=== PATIENT | male | born 1950 | race Hispanic/Latino ===

== ENCOUNTER 2017-03-21 15:06 | Outpatient (CLI) | payer BC ==
--- NOTE | 2017-03-21 18:19 | MRI ---
BRAIN MRI WITH AND WITHOUT CONTRAST MRI IAC WITH AND WITHOUT CONTRAST: Date: 03/21/17 CLINICAL HISTORY: Sudden idiopathic hearing loss, left ear. No prior MR imaging available for comparison. FINDINGS: Ventricular system is age-appropriate in size. There is no midline shift or mass effect intracranial ly, Mild chronic microvascular ischemic disease is present. There is no pathologic enhancement or ma ss effect of either CP angle cistern. IMPRESSION: 1. No acute intracranial abnormalities. 2. Mild chronic microvascular ischemic disease. 3. No pathologic enhancement or mass effect of either CP angle cistern. POS: [facility]
== END 2017-03-21 15:07 | disposition home or self-care (01) ==
LOC: MRI 15:06
PROVIDERS: ATTEND Otolaryngology Otolaryngic Allergy
DX: H91.22 Sudden idiopathic hearing loss, left ear (principal); H90.A21 Sensorineural hearing loss, unilateral, right ear, with restricted hearing on the contralateral side; H72.91 Unspecified perforation of tympanic membrane, right ear; H93.12 Tinnitus, left ear; I67.82 Cerebral ischemia
CPT/HCPCS: 70553

== ENCOUNTER 2017-07-13 07:07 | Emergency (ER) | payer BC ==
[2017-07-13 07:33] LABS: #Eosinphils 0.3 thou/uL (0.0-0.7); #Lymphocytes 2.2 thou/uL (1.20-3.40); #Monocytes 0.8 thou/uL (0.11-0.59); #Neutrophils 6.7 thou/uL (1.40-6.50); %Basophils 0.5 % (0.0-1.0); %Eosinophils 2.7 % (0.0-10.0); %Lymphocytes 21.5 % (21.0-51.0); %Monocytes 8.3 % (0.0-10.0); Hemoglobin 16.7 g/dL (14.0-18.0); Mean Corpuscular HGB CONC 33.8 g/dL (32.0-36.0); Mean Corpuscular Hemoglobin 30.3 pg (27.0-31.0); Mean Corpuscular Volume 89.9 fl (80.0-94.0); Mean Platelet Volume 6.4 fL (7.4-10.4); Platelet Count 226 thou/uL (130-400); RBC Distribution Width 12.3 % (11.5-14.5); Red Blood Cell (RBC) Count 5.49 mill/uL (4.70-6.10)
[2017-07-13 07:45] LABS: ALT (SGPT) 15 U/L (8-55); AST (SGOT) 16 U/L (5-34); Albumin 3.9 g/dL (3.4-4.8); Alkaline Phosphatase 53 U/L (40-150); Anion Gap 13 mmol/L (10-20); BUN (Urea Nitrogen) 13 mg/dL (8.4-25.7); Bilirubin, Total 0.7 mg/dL (0.2-1.2); Calc. Creatinine Clearance 0 mL/min (70-130); Calcium 9.2 mg/dL (7.8-10.44); Carbon Dioxide 24 mmol/L (23-31); Chloride 103 mmol/L (98-107); Estimated GFR-MDRD 70; Globulin 3.4 g/dL (2.4-3.5); Glucose 139 mg/dL (80-115); Potassium 4.2 mmol/L (3.5-5.1); Protein, Total 7.3 g/dL (5.8-8.1); Sodium 136 mmol/L (136-145)
[2017-07-13 08:30] LABS: Bilirubin Negative (Negative); Blood, Urine Large (Negative); Clarity CLOUDY (Clear); Glucose, Urine (Dipstick) Negative (Negative); Leukocyte Small (Negative); Nitrite Negative (Negative); Protein, Urine (Dipstick) 30 mg/dL (Neg-Trace); Specific Gravity, Urine 1.013 (1.002-1.036); Urobilinogen 0.2 mg/dL (0.2-1.0); pH, Urine 5.5 (5.0-9.0)
[2017-07-13 08:33] LABS: Bacteria/HPF None Seen HPF (None Seen); Hyaline Casts/LPF 0-3 HYALINE CAST LPF (0-3 Hyaline); RBC/HPF GREATER THAN 50-TNTC HPF (0-3); Squamous Epithelial None Seen HPF (0-3)
== END 2017-07-13 09:36 | disposition home or self-care (01) ==
LOC: ERS 07:07
DX: N39.0 Urinary tract infection, site not specified (principal); E78.5 Hyperlipidemia, unspecified; Z79.01 Long term (current) use of anticoagulants
CPT/HCPCS: 36415; 80053; 81003; 81015; 85025; 99283

== ENCOUNTER 2017-07-30 17:43 | Outpatient (CLI) | payer BC, MEDICARE ==
[2017-07-30 18:16] LABS: Hemoglobin 15.4 g/dL (14.0-18.0); Mean Corpuscular HGB CONC 34.1 g/dL (32.0-36.0); Mean Corpuscular Hemoglobin 30.2 pg (27.0-31.0); Mean Corpuscular Volume 88.6 fl (80.0-94.0); Platelet Count 223 thou/uL (130-400); RBC Distribution Width 12.4 % (11.5-14.5); Red Blood Cell (RBC) Count 5.08 mill/uL (4.70-6.10); White Blood Cell (WBC) Count 9.3 thou/uL (4.8-10.8)
[2017-07-30 18:26] LABS: INR-International Normal Ratio 1.1; Prothrombin Time 13.9 SEC (12.0-14.7)
[2017-07-30 18:29] LABS: PTT 19.9 SEC (22.9-36.1)
[2017-07-30 18:35] LABS: Anion Gap 14 mmol/L (10-20); BUN (Urea Nitrogen) 17 mg/dL (8.4-25.7); Calc. Creatinine Clearance 0 mL/min (70-130); Calcium 9.4 mg/dL (7.8-10.44); Carbon Dioxide 24 mmol/L (23-31); Chloride 104 mmol/L (98-107); Estimated GFR-MDRD 59; Glucose 92 mg/dL (80-115); Potassium 3.9 mmol/L (3.5-5.1); Sodium 138 mmol/L (136-145)
[2017-07-30 18:46] LABS: Platelet Count 222 thou/uL (130-400)
== END 2017-07-30 17:44 | disposition home or self-care (01) ==
LOC: LABBT 17:43
PROVIDERS: ATTEND Urology
DX: Z01.812 Encounter for preprocedural laboratory examination (principal); N20.1 Calculus of ureter
CPT/HCPCS: 80048; 85027; 85576; 85610; 85730; 93005; 93010

== ENCOUNTER 2017-07-31 05:47 | Day surgery (SDC) | payer BC, MEDICARE ==
[2017-07-30 18:06] VITALS: BMI 38.0
[2017-07-31] MEDS ORDERED: Iothalamate Meglumine 60% 50 ML VIAL FS ONE (07:17)
[2017-07-31] MEDS ORDERED: cefTRIAXone\\ROCEPHIN 2 GM in Sodium Chloride 0.9% 100 ML IVPB SCH (07:30)
--- NOTE | 2017-07-31 08:44 | RAD ---
ABDOMEN 1 VIEW: Date: 07/31/17 HISTORY: 67-year-old male with history of preoperative evaluation. FINDINGS: There is some scattered gas and fecal material in the colon. No evidence for large or small bowel obs truction. No overt calculus. Somewhat patchy bone mineralization within the proximal femurs, nonspeci fic. No overt calculus. No large or small bowel obstruction. IMPRESSION: No significant acute process in the abdomen. POS: [facility]
[2017-07-31] MEDS ORDERED: Midazolam HCl 2 mg/2 ml Vial ONE (09:26)
[2017-07-31] MEDS ORDERED: Fentanyl 250 MCG/5 ML VIAL ONE ×2 (09:26→10:44)
--- NOTE | 2017-07-31 09:49 | OP ---
DATE OF PROCEDURE: 07/31/2017 PREOPERATIVE DIAGNOSIS: Right proximal ureteral stone. POSTOPERATIVE DIAGNOSIS: Right proximal ureteral stone. PROCEDURE: Extracorporeal shock wave lithotripsy, cysto, right stents. SURGEON: Dr. Rohith Contreras ANESTHESIA: General. ESTIMATED BLOOD LOSS: Not recorded. FINDINGS: A 1 cm proximal right ureteral stone treated with 2500 shocks at maximum kV level 6, it di d appear to fragment well. Because of the number of potential fragments to pass, we did pass a 4.8 x 26 cm double-J stent, string was left attached to it coming out the urethral meatus. OPERATIVE TECHNIQUE: After obtaining written and verbal consent from the patient, after documenting normal preoperative blood work, platelet function assay and after receiving 2 grams of Rocephin, he w as taken to the operating suite. He was placed in supine position on the treatment table. PlexiPuls es were placed on his lower extremities and turned on. He was given a general anesthetic, oral intub ation. He was coupled to the lithotripsy unit. The stone was placed in treatment focal point. Shoc kwave started at a low kV after a couple 100 shocks, a pause was given and then the kV was increased to level 6. The rate was kept at about 60, the fluoroscopy was used intermittently to document stone fragmentation and reposition as necessary. It did appear that the stone fragmented well compared to what it initially looked like. There were just what appeared to be some fragments left. He is quit e large, so it is not for certain what we are seeing and for that reason, we elected to do a cystosco py and a retrograde which we did, the stone fragments were seen still in the proximal ureter. They d id appear to be much smaller. Because of the number of fragments we did elect to place a stent. So to do this he was placed in the dorsal lithotomy position and sterilely prepped and draped. Cystosco py could not be performed with a 22-English sheath and so we had to dilate him up gently to 24 English before we can get the scope pass, it passed easily then. He had a stricture of the bulb that was eas serina passed. It was wide caliber and short, he had a large prostate. He had no tumor, foreign body, or stone in the bladder. A Pollack catheter was flushed with contrast, placed in the right ureteral orifice and contrast injected in retrograde manner showing a normal caliber ureter, some filling defe cts in the proximal ureter where the ESWL was. A wire was then fed by this and open-ended catheter was removed, and the stent was passed over the guidewire and pushed up in place with aid of a pusher so its proximal end coiled in the renal pelvis and its distal end coiled in the bladder when the wire was removed. The string was left exiting the urethral meatus. The bladder was drained. Instrument s were removed. The patient was awakened, extubated, and taken by stretcher to the recovery room.
[2017-07-31] MEDS ORDERED: Lidocaine 1% PF 5 ML VIAL ONE (14:19)
[2017-07-31] MEDS ORDERED: Ondansetron HCl/PF 4 MG/2 ML Vial ONE (14:19)
[2017-07-31] MEDS ORDERED: Propofol 200 MG/20 ML VIAL ONE (14:19)
[2017-07-31] MEDS ORDERED: Succinylcholine Chloride 20 MG/ML 10 ml SYRINGE FS ONE (14:19)
[2017-07-31] MEDS ORDERED: ePHEDrine/0.9% NaCl/PF SYRINGE 50 mg/10 ml ONE (14:19)
[2017-07-31] MEDS ORDERED: PHENYLEPHRINE-NS 100 MCG/ML 10 ML SYRINGE ONE (14:19)
== END 2017-07-31 10:58 | disposition home or self-care (01) ==
LOC: SDC 05:47
PROVIDERS: ATTEND Urology
PROC: 0T768DZ Dilation of Right Ureter with Intraluminal Device, Via Natural or Artificial Opening Endoscopic (ICD-10-PCS; principal; 2017-07-31)
PROC: 0TF6XZZ Fragmentation in Right Ureter, External Approach (ICD-10-PCS; principal; 2017-07-31)
DX: N20.1 Calculus of ureter (principal); E11.9 Type 2 diabetes mellitus without complications; E78.5 Hyperlipidemia, unspecified; Z79.84 Long term (current) use of oral hypoglycemic drugs; Z79.01 Long term (current) use of anticoagulants; Z79.899 Other long term (current) drug therapy; Z87.442 Personal history of urinary calculi
CPT/HCPCS: 74018; C1758; J0696; J2001; J2250; J2405; J2704; J3010; J7050; Q9961

== ENCOUNTER 2017-12-17 13:01 | Emergency (ER) | payer BC, MEDICARE ==
[2017-12-17] MEDS ORDERED: Lidocaine 4% Cream 5 GM TUBE w/ Tegaderm ONE (13:24)
[2017-12-17] MEDS ORDERED: Bacitracin Zinc 1 Packet ONE (13:56)
== END 2017-12-17 14:24 | disposition home or self-care (01) ==
LOC: ERS 13:01
DX: S01.21XA Laceration without foreign body of nose, initial encounter (principal); V89.2XXA Person injured in unspecified motor-vehicle accident, traffic, initial encounter; Z87.442 Personal history of urinary calculi
CPT/HCPCS: 12011

== ENCOUNTER 2018-06-11 21:38 | Observation (INO) | payer BC, MEDICARE ==
[~2018-06-11 21:38] MED LIST: ISOVUE-370 76%-LOCM 1 ML ONE
[2018-06-11 23:59] LABS: #Eosinphils 0.1 thou/uL (0.0-0.7); #Lymphocytes 1.6 thou/uL (1.20-3.40); #Monocytes 0.8 thou/uL (0.11-0.59); #Neutrophils 6.8 thou/uL (1.40-6.50); %Basophils 0.2 % (0.0-1.0); %Eosinophils 1.6 % (0.0-10.0); %Lymphocytes 17.3 % (21.0-51.0); %Monocytes 8.5 % (0.0-10.0); %Neutrophils 72.4 % (42.0-75.0); Hemoglobin 14.7 g/dL (14.0-18.0); Mean Corpuscular HGB CONC 33.6 g/dL (32.0-36.0); Mean Corpuscular Hemoglobin 30.4 pg (27.0-31.0); Mean Corpuscular Volume 90.4 fL (78.0-98.0); Mean Platelet Volume 6.6 fL (7.4-10.4); Platelet Count 218 thou/uL (130-400); RBC Distribution Width 12.2 % (11.5-14.5); Red Blood Cell (RBC) Count 4.83 mill/uL (4.70-6.10); White Blood Cell (WBC) Count 9.4 thou/uL (4.8-10.8)
[2018-06-12 00:05] LABS: INR-International Normal Ratio 1.6; PTT 28.2 SEC (22.9-36.1); Prothrombin Time 18.8 SEC (12.0-14.7)
[2018-06-12 00:20] LABS: ALT (SGPT) 23 U/L (8-55); AST (SGOT) 25 U/L (5-34); Albumin 3.8 g/dL (3.4-4.8); Alkaline Phosphatase 65 U/L (40-150); Anion Gap 15 mmol/L (10-20); BUN (Urea Nitrogen) 16 mg/dL (8.4-25.7); Bilirubin, Total 0.7 mg/dL (0.2-1.2); CK (CPK) 264 U/L (30-200); Calc. Creatinine Clearance 0 mL/min (70-130); Calcium 9.6 mg/dL (7.8-10.44); Carbon Dioxide 24 mmol/L (23-31); Chloride 105 mmol/L (98-107); Estimated GFR-MDRD 59; Globulin 3.1 g/dL (2.4-3.5); Glucose 129 mg/dL (80-115); Potassium 4.1 mmol/L (3.5-5.1); Protein, Total 6.9 g/dL (5.8-8.1); Sodium 140 mmol/L (136-145)
[2018-06-12] MEDS ORDERED: Enoxaparin Sodium 100 MG/ML SYRINGE ONE (03:15)
[2018-06-12 03:48] LABS: Bilirubin Negative (Negative); Blood, Urine Negative (Negative); Clarity CLOUDY (Clear); Glucose, Urine (Dipstick) Negative (Negative); Leukocyte Negative (Negative); Nitrite Negative (Negative); Protein, Urine (Dipstick) Negative (Neg-Trace); Specific Gravity, Urine 1.028 (1.002-1.036); pH, Urine 7.5 (5.0-9.0)
[2018-06-12 04:49] VITALS: BMI 38.1
[2018-06-12] MEDS ORDERED: Ondansetron PF 4 MG/2 ML Vial IVP PRN (04:52)
[2018-06-12] MEDS ORDERED: Acetaminophen 325 MG TAB PO PRN ×2 (04:52→11:11)
[2018-06-12] MEDS ORDERED: Ondansetron ODT 4 MG TAB SL PRN (04:52)
--- NOTE | 2018-06-12 08:37 | CT ---
PRELIMINARY REPORT/[facility]/EMERGENTY AFTER-HOURS PROCEDURE CT Angiography Chest With Contrast EXAM DATE/TIME: 06/12/2018 12:41 AM CLINICAL HISTORY: 67 years old, male; Signs and symptoms; Other: Syncope; Patient HX: Er 20; 67 y/o m presents to ed S/ P syncope and collapse. PT has had a total of x 3 episodes, with 2 this week and 1 last week. Previou s episodes similar to event today. Last week, the event was preceded by a bout of profuse coughing. PT C/O of dizziness following the events. ; Additional info: HX: Dvt TECHNIQUE: Axial computed tomographic angiography images of the chest with intravenous contrast using CT angiogr aphy protocol. MIP reconstructed images were created and reviewed. COMPARISON: No relevant prior studies available. FINDINGS: Pulmonary arteries: No pulmonary emboli. Aorta: Normal. No aortic aneurysm. No aortic dissection. Lungs: Normal. No consolidation. No masses. Pleural space: Normal. No pneumothorax. No pleural effusion. Heart: Moderate three-vessel coronary artery atherosclerotic disease. Mediastinum: Small-sized hiatal hernia. Lymph nodes: Few small lymph nodes within the mediastinum, likely reactive. Bones/joints: Multilevel thoracic spine degenerative changes. Soft tissues: Unremarkable. IMPRESSION: No pulmonary emboli. No acute thoracic abnormality. Thank you for allowing us to participate in the care of your patient. Dictated and Authenticated by: Brando Adkins MD 06/12/2018 1:08 AM Central Time ([place] & [place]) FINAL REPORT EMERGENT AFTER HOURS CT ANGIO OF CHEST PERFORMED WITH INTRAVENOUS CONTRAST ENHANCEMENT WITH 3D RECONS TRUCTIONS: HISTORY: Syncopal episode. Coughing. FINDINGS: Lungs are clear of any infiltrative process. No pulmonary nodules or pleural effusions identified. No significant mediastinal or hilar adenopathy. Artifact degrades detail. There is fair pulmonary artery opacification for evaluation for proximal e mboli. Distal emboli cannot be excluded on the basis of this study. Evaluation is more difficult in the lower lobe pulmonary arteries. There is no CT evidence for pulmonary embolus. IMPRESSION: 1. Somewhat limited examination, but no CT evidence for pulmonary embolus. 2. This report is in agreement with the temporary report issued by [facility]. POS: [facility]
--- NOTE | 2018-06-12 08:39 | CT ---
PRELIMINARY REPORT/[facility]/EMERGENTY AFTER-HOURS PROCEDURE CT Head Without Contrast EXAM DATE/TIME: 06/12/2018 12:37 AM CLINICAL HISTORY: 67 years old, male; Signs and symptoms; Syncope and collapse; Patient HX: Er 20; 67 y/o m presents to ed S/P syncope and collapse. PT has had a total of x 3 episodes, with 2 this week and 1 last week. P revious episodes similar to event today. Last week, the event was preceded by a bout of profuse cough ing. PT C/O of dizziness following the events. ; Additional info: HX: Dvt TECHNIQUE: Axial computed tomography images of the head/brain without contrast. COMPARISON: No relevant prior studies available. FINDINGS: Brain: Scattered areas of hypoattenuation, likely chronic small vessel ischemic change, demyelination , or gliosis. Ventricles: Normal. Bones/joints: Normal. Sinuses: Normal as visualized. Mastoid air cells: Normal as visualized. Soft tissues: Normal. Vasculature: Atherosclerotic vascular calcifications. IMPRESSION: No acute intracranial abnormality. Thank you for allowing us to participate in the care of your patient. Dictated and Authenticated by: Brando Adkins MD 06/12/2018 1:05 AM Central Time ([place] & [place]) FINAL REPORT EMERGENCY AFTER HOURS CT BRAIN PERFORMED WITHOUT CONTRAST ENHANCEMENT: Date: 06/11/18 HISTORY: Syncope. FINDINGS: The ventricular and cisternal system shows generalized mild atrophy. There are no signs of intracereb ral hemorrhage or extra-axial fluid collections. The mastoid air cells and visualized sinuses are natalie ar. IMPRESSION: No acute intracranial abnormalities. This report is in agreement with the preliminary report issued by [facility]. POS: [facility]
--- NOTE | 2018-06-12 08:40 | ULT ---
PRELIMINARY REPORT/[facility]/EMERGENT[facility] AFTER-HOURS PROCEDURE US Right Duplex Lower Extremity Veins, Limited EXAM DATE/TIME: 06/12/2018 12:03 AM CLINICAL HISTORY: 67 years old, male; Pain; Leg, lower; Right; Patient HX: RT calf pain; Additional info: HX: Dvt TECHNIQUE: Real-time Duplex ultrasound of the Right Lower Extremity with 2-D franklin scale, color Doppler flow and spectral waveform analysis. Limited exam was focused on the right lower extremity veins. COMPARISON: No relevant prior studies available. FINDINGS: Right deep veins: Nearly nearly occlusive thrombus within the right mid posterior tibial vein, which is only partially compressible. Remainder of the visualized right lower extremity deep veins are wide ly patent, with normal color Doppler flow and response to augmentation and compression maneuvers. Right superficial veins: Unremarkable. Saphenofemoral junction is patent without thrombus. Soft tissues: Unremarkable. IMPRESSION: Near occlusive DVT within the mid posterior tibial vein. Thank you for allowing us to participate in the care of your patient. Dictated and Authenticated by: Brando Adkins MD 06/12/2018 12:31 AM Central Time ([place] & [place]) FINAL REPORT EMERGENCY AFTER HOURS RIGHT LOWER EXTREMITY VENOUS DUPLEX EXAM: Date: 06/11/18 HISTORY: Right leg pain and swelling. FINDINGS: Real-time color Doppler evaluation of the right lower extremity was performed from groin to calf. Thi s includes evaluation of the common femoral, superficial and profunda femoral, saphenous, popliteal, and posterior tibial veins. This shows some thrombus within the mid posterior tibial vein within the calf. The remainder of the deep venous system is patent with normal compressibility and augmentation. IMPRESSION: Nonocclusive deep venous thrombosis of the mid calf, specifically involving the popliteal vein in thi s region. This report is in agreement with the preliminary report issued by [facility]. POS: [facility]
[2018-06-12] MEDS ORDERED: Prevnar 13-Val Conj/PF 0.5 ML SYRINGE IM ONE (09:00)
[2018-06-12] MEDS ORDERED: Dextrose 5% in Water 1,000 ML IV PRN (11:11)
[2018-06-12] MEDS ORDERED: HumaLOG 300 UNITS/3 ML VIAL SC PRN ×2 (11:11)
[2018-06-12] MEDS ORDERED: Dextrose 50% Abboject 50 ML SYRINGE SLOW IVP PRN (11:11)
[2018-06-12] MEDS ORDERED: Senokot S 8.6-50 MG TAB PO PRN (11:11)
[2018-06-12] MEDS ORDERED: Lorazepam 2 MG/ML VIAL SLOW IVP PRN (11:11)
--- NOTE | 2018-06-12 13:49 | HP ---
REASON FOR ADMISSION: Syncope, possible seizure, likely sleep apnea. HISTORY OF PRESENTING ILLNESS: The patient apparently passed out twice while sitting on his couch, once last week and once yesterday evening. During both episodes which were witnessed by family members, the patient apparently had his eyes rolled out and his tongue was outside his mouth. No hand or leg movements witnessed. He usually has some coughing episodes before these passing out. Yesterday's episode was witnessed by his granddaughter, who is also trying to become a nurse. No complaints of chest pain, palpitation, PND, or orthopnea. No history of prior seizures. The patient has history of snoring and the family thinks he might have sleep apnea but has not had any formal studies for the same. No palpitations, PND, or orthopnea before or after the episodes. The patient does not recall what really happened during the episode. He usually wakes up surprised per family. 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 History of nephrolithiasis with lithotripsy, dyslipidemia, likely obstructive sleep apnea. CURRENT MEDICATIONS: He takes; 1. Metformin extended release 500 mg p.o. q.p.m. 2. Zocor 20 mg p.o. at bedtime. 3. Xarelto 20 mg p.o. daily. ALLERGIES: NO KNOWN DRUG ALLERGIES. PERSONAL HISTORY: Does not abuse alcohol or drugs. No history of smoking. FAMILY HISTORY: Mother in her 60s, she had end-stage renal disease and was on dialysis. Father had history of prostate cancer and in his 70s. The patient normally ambulates by himself. Code status is full. Power of assistant attorney general is his . REVIEW OF SYSTEMS: CONSTITUTIONAL: Negative for weight loss or gain, sense of well-being, ability to conduct usual activities, exercise tolerance. SKIN/BREAST: Negative for rash, itching, changes in hair growth or loss, nail changes, breast lumps, tenderness, swelling, nipple discharge. EYES: Negative for vision, double vision, tearing, blind spots, pain. ENT/MOUTH: Negative for headaches, vertigo, lightheadedness, injury. Vision, double vision, tearing, blind spots, pain, nose bleeding, colds, obstruction, discharge, dental difficulties, gingival bleeding, dentures, neck stiffness, pain, tenderness, masses in thyroid or other areas CARDIOVASCULAR: Negative for precordial pain, substernal distress, palpitations, syncope, dyspnea on exertion, orthopnea, nocturnal paroxysmal dyspnea, edema, cyanosis, hypertension, heart murmurs, varicosities, phlebitis, claudication. RESPIRATORY: Negative for pain, shortness of breath, wheezing, stridor, cough, hemoptysis, fever or night sweats GASTROINTESTINAL: Negative for poor appetite, dysphagia, indigestion, abdominal pain, heartburn, eructation, nausea, vomiting, hematemesis, jaundice, constipation, or diarrhea, abnormal stools (sheri-colored, tarry, bloody, greasy, foul smelling), flatulence, hemorrhoids, recent changes in bowel habits. GENITOURINARY: Negative for urgency, frequency, dysuria, nocturia, hematuria, polyuria, oliguria, unusual (or change in) color of urine, stones, hesitancy, change in size of stream, dribbling, acute retention or incontinence, libido, potency. MUSCULOSKELETAL: Negative for pain, swelling, redness or heat of muscles or joints, limitation of motion, muscular weakness, atrophy, cramps. NEUROLOGIC/PSYCHIATRIC: Negative for convulsions, paralyses, tremor, incoordination, parasthesias, difficulties with memory of speech, sensory or motor disturbances, or muscular coordination (ataxia, tremor), emotional problems, anxiety, depression, previous psychiatric care, unusual perceptions, hallucinations. ALLERGY/IMMUNOLOGIC: Negative for skin rash, anemia, bleeding tendency, polydipsia, polyuria, intolerance to heat or cold. PHYSICAL EXAMINATION: GENERAL: The patient is a 67-year-old male, who is currently not in any acute distress. VITAL SIGNS: Blood pressure 120/66, pulse 90 per minute, respiratory rate 18 per minute, temperature 98.9 degrees Fahrenheit, saturating 96% on room air. NECK: Supple. No elevated JVD. HEENT: Eyes; extraocular muscles intact. Pupils are reacting to light. Oral cavity, mucous membranes are moist. No exudates or congestion. CARDIOVASCULAR: S1 and S2 heard. Regular rhythm. RESPIRATORY SYSTEM: Air entry 1+ bilateral. No rales or rhonchi. ABDOMEN: Soft. Bowel sounds heard. No tenderness, rigidity, or guarding. EXTREMITIES: No peripheral edema or calf tenderness. VASCULAR SYSTEM: Peripheral pulses 1+ bilateral. No ischemic ulcerations or gangrene. CENTRAL NERVOUS SYSTEM: No gross focal deficits noted. The patient is alert and oriented well. PSYCHIATRIC: The patient's mood is euthymic. No hallucinations or delusions. LABORATORY DATA: CT angio chest done shows no evidence of PE. The right lower extremity ultrasound venous Doppler done shows nonocclusive DVT of the midcalf involving popliteal vein in the region. CT brain showed no acute intracranial abnormalities. EKG done shows normal sinus rhythm at 79 beats per minute. UA showed no evidence of infection. BUN 16, creatinine 1.2, serum bicarb 24, electrolytes were stable. Serum glucose 129. Liver enzymes within normal limits. Prolactin is 9.9. BNP is 15. Albumin 3.8. White count of 9, hemoglobin and hematocrit of 14 and 43, platelet count 218, MCV 90 with 72% neutrophils, PT and INR are 18 and 1.6, PTT 28. CLINICAL IMPRESSION AND PLAN: The patient will be under observation on telemetry for syncope, which has been recurrent. Also, family is worried he might have seizure disorder. He has had a CT brain done, which shows no evidence of any acute intracranial abnormality. The patient likely has sleep apnea with metabolic syndrome and obesity. He needs to have outpatient sleep study and likely CPAP. For now, we will continue him on Xarelto. This is his third episode of DVT. 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 The patient has no siblings. We will continue him on aspirin and Lipitor for now. Metformin will be held until all the workups are done. Echo with 2D Doppler for LV function, MRI brain without contrast to rule out any structural lesions. EEG and echo with 2D Doppler for RV function and to rule out pulmonary hypertension with likely long-standing sleep apnea. We will also obtain consultation with Dr. Vasques, who is on for Neurology. Job ID: [id number]
[2018-06-12] MEDS: Famotidine 20 MG TAB PO SCH (20:24)
[2018-06-12] MEDS: Guaifenesin DM 100-10/5 ML UDCUP PO PRN (20:29)
[2018-06-12] MEDS ORDERED: Atorvastatin Calcium 10 MG TAB PO SCH (21:00)
--- NOTE | 2018-06-12 23:40 | CON ---
DATE OF CONSULTATION: 06/12/2018 CONSULTING PHYSICIAN: Hospitalist Service. IMPRESSION: Probable syncopal episode rather than a neurologic event. PLAN: 1. An outpatient cardiology evaluation for stress test and possible event monitor. 2. Office followup if cardiology workup is negative. HISTORY OF PRESENT ILLNESS: Mr. Burnett is a 67-year-old male with a past history of diabetes, DVT, who presented after a syncopal episode. He was sitting talking on the phone when he suddenly rolled his eyes upward and was unresponsive for about 15 seconds. When he came out of it, he reports that he did not have a headache, nausea, vomiting, dizziness, chest pain, or confusion. He had an another episode similar to this in the recent past. The only 3rd episode was around a year ago according to his daughter. 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 He has had a workup since admission including orthostatic vital signs which have not showed any blood pressure variation. His CT of the brain was normal. He had an EEG which was also normal. His routine labs including CBC and comprehensive metabolic panel were both normal as well. PAST MEDICAL HISTORY: Otherwise as noted above, including lithotripsy for kidney stone. ALLERGIES: NONE. SOCIAL HISTORY: No tobacco use or illicit drug use. FAMILY HISTORY: Unremarkable. REVIEW OF SYSTEMS: A 10-system review of systems is, otherwise, negative. PHYSICAL EXAMINATION: GENERAL: He is an overweight, middle-aged man, lying in bed, in no distress. VITAL SIGNS: Blood pressure 114/70, pulse 75, respirations 16, temperature 98.4. HEENT: Pupils are equal and reactive. Conjunctivae clear. Oropharynx clear. NECK: Supple. No lymphadenopathy. EXTREMITIES: No cyanosis or edema. NEUROLOGIC: He was alert and cooperative. Speech was fluent and clear. His exam is nonfocal. IMAGING DATA: CT of the brain was reviewed. SUMMARY: This is a middle-age man with brief episodes of syncope without any evidence of convulsive activity. Neurologic workup has been normal so far. Given his body habitus and risk factors, I would think that cardiac issue needs to be excluded. I would be happy to follow up with him as an outpatient. Job ID: [id number]
[2018-06-13 04:47] LABS: #Eosinphils 0.3 thou/uL (0.0-0.7); #Lymphocytes 1.3 thou/uL (1.20-3.40); #Monocytes 0.7 thou/uL (0.11-0.59); #Neutrophils 6.8 thou/uL (1.40-6.50); %Basophils 0.4 % (0.0-1.0); %Eosinophils 3.1 % (0.0-10.0); %Neutrophils 74.5 % (42.0-75.0); Hemoglobin 14.6 g/dL (14.0-18.0); Mean Corpuscular HGB CONC 33.9 g/dL (32.0-36.0); Mean Corpuscular Hemoglobin 30.8 pg (27.0-31.0); Mean Platelet Volume 6.4 fL (7.4-10.4); Platelet Count 202 thou/uL (130-400); RBC Distribution Width 12.1 % (11.5-14.5); Red Blood Cell (RBC) Count 4.72 mill/uL (4.70-6.10); White Blood Cell (WBC) Count 9.1 thou/uL (4.8-10.8)
[2018-06-13] MEDS: Guaifenesin DM 100-10/5 ML UDCUP PO PRN ×2 (05:14→12:44)
[2018-06-13 05:16] LABS: Anion Gap 13 mmol/L (10-20); BUN (Urea Nitrogen) 14 mg/dL (8.4-25.7); Calc. Creatinine Clearance 119 mL/min (70-130); Calcium 8.8 mg/dL (7.8-10.44); Carbon Dioxide 22 mmol/L (23-31); Chloride 103 mmol/L (98-107); Estimated GFR-MDRD 77; Glucose 116 mg/dL (80-115); Potassium 3.9 mmol/L (3.5-5.1); Sodium 134 mmol/L (136-145)
[2018-06-13] MEDS ORDERED: Aspirin Chewable 81 MG TAB PO SCH (09:00)
[2018-06-13] MEDS ORDERED: Rivaroxaban 10 MG TAB PO SCH (09:00)
--- NOTE | 2018-06-13 09:47 | EEG ---
Referring Physician: UZAIR EEG # [id number] TEST TYPE: ROUTINE PORTABLE INPATIENT REPORT: AN EEG USING THE INTERNATIONAL TEN-TWENTY SYSTEM OF ELECTRODE PLACEMENT WAS PERFORMED. The waking background is an 8 hertz Alpha frequency. No sleep was seen. Photic stimulation was unremarkable. No epileptiform features were present. IMPRESSION: THIS IS A NORMAL AWAKE EEG. Outpatient Physical Therapist: ADRIAN Ammonium Sulfate Operator: EEG.[email or web address] LUCERO
--- NOTE | 2018-06-13 10:13 | MRI ---
MRI BRAIN WITHOUT CONTRAST: HISTORY: Syncope and collapse, seizure. FINDINGS: Correlation is made to the previous day's CT scan. Multiple foci of T2 prolongation in the periventricular white matter are consistent with chronic smal l-vessel ischemic disease. No restricted diffusion is seen. No evidence of infarct, hemorrhage, mid line shift, or abnormal extraaxial fluid collections are seen. The ventricular size is appropriate a nd the basilar cisterns patent. There is mucosal disease in the paranasal sinuses. IMPRESSION: No evidence of acute intracranial process. POS: [facility]
[2018-06-13] MEDS: Famotidine 20 MG TAB PO SCH (10:14)
[2018-06-13 12:11] VITALS: BP 117/77; TEMP 98
--- NOTE | 2018-06-13 12:24 | PDOC.PN ---
- Subjective Encounter Start Date: 06/13/18 Encounter Start Time: 09:15 Subjective: no chest pain or passing out episodes -: no c/o palp - Objective Resuscitation Status - Order Detail: 06/12/18 11:04 Resuscitation Status Routine Resuscitation Status: FULL: Full Resuscitation MAR Reviewed: Yes Vital Signs & Weight: Vital Signs (12 hours) Temp Pulse Resp BP BP Pulse Ox 06/13/18 11:20 98 F 80 20 117/77 94 L 06/13/18 07:41 98.5 F 72 20 127/80 93 L 06/13/18 03:10 73 18 138/77 96 Weight Weight 251 lb I&O: 06/12/18 06/13/18 06/14/18 06:59 06:59 06:59 Intake Total 240 960 Output Total 900 850 Balance 240 60 -850 Result Diagrams: 06/13/18 04:27 06/13/18 04:27 Additional Labs: Accuchecks 06/13/18 06/12/18 06/12/18 10:44 20:55 16:50 POC Glucose 185 H 136 H 119 H Phys Exam - Physical Examination HEENT: PERRLA, moist MMs Neck: no JVD, supple Respiratory: no wheezing, no rales Cardiovascular: RRR, no significant murmur Gastrointestinal: soft, non-tender, positive bowel sounds Musculoskeletal: no edema, pulses present Neurological: non-focal, moves all 4 limbs Psychiatric: normal affect, A&O x 3 Dx/Plan (1) Syncope Code(s): R55 - SYNCOPE AND COLLAPSE Status: Resolved (2) Obesity (BMI 30-39.9) Code(s): E66.9 - OBESITY, UNSPECIFIED Status: Chronic (3) DAVY (obstructive sleep apnea) Code(s): G47.33 - OBSTRUCTIVE SLEEP APNEA (ADULT) (PEDIATRIC) Status: Suspected (4) DVT (deep venous thrombosis) Code(s): I82.409 - ACUTE EMBOLISM AND THOMBOS UNSP DEEP VN UNSP LOWER EXTREMITY Status: Acute Qualifiers: DVT location: lower extremity Chronicity: acute Laterality: right (5) Diabetes Code(s): E11.9 - TYPE 2 DIABETES MELLITUS WITHOUT COMPLICATIONS Status: Chronic Qualifiers: Diabetes mellitus type: type 2 Diabetes mellitus medical terminologist insulin use: without medical terminologist use Diabetes mellitus complication status: with unspecified complications Qualified Code(s): E11.8 - Type 2 diabetes mellitus with unspecified complications (6) Hyperlipemia Code(s): E78.5 - HYPERLIPIDEMIA, UNSPECIFIED Status: Chronic Qualifiers: Hyperlipidemia type: unspecified Qualified Code(s): E78.5 - Hyperlipidemia , unspecified - Plan hemostable -: eeg, mri brain and telemetry have not revealed any abnormalities -: will have outpt sleep study for susp davy -: may need event monitor, 2 episode in 1 week to r/o arrhythmias if ok with c -: -ardiology, may dc home if ok with cardio. * . Review of Systems - Medications/Allergies Allergies/Adverse Reactions: Allergies Allergy/AdvReac Type Severity Reaction Status Date / Time No Known Allergies Allergy Verified 06/12/18 05:04 Medications: Current Medications Acetaminophen (Tylenol) 650 mg PO Q4H PRN PRN Reason: Headache/Fever/Mild Pain (1-3) Aspirin (Aspirin Chewable) 81 mg PO DAILY [facility] Last Admin: 06/13/18 10:14 Dose: 81 mg Atorvastatin Calcium (Lipitor) 10 mg PO HS [facility] Last Admin: 06/12/18 20:23 Dose: 10 mg Dextrose/Water (Dextrose 50%) 25 gm SLOW IVP PRN PRN PRN Reason: Hypoglycemia Famotidine (Pepcid) 20 mg PO BID [facility] Last Admin: 06/13/18 10:14 Dose: 20 mg Glucagon (Glucagon) 1 mg IM PRN PRN PRN Reason: Hypoglycemia Guaifenesin/Dextromethorphan (Robitussin Dm) 15 ml PO Q4H PRN PRN Reason: Cough Last Admin: 06/13/18 05:14 Dose: 15 ml Dextrose/Water (D5w) 1,000 mls @ 0 mls/hr IV .Q0M PRN PRN Reason: Hypoglycemia Insulin Human Lispro (Humalog) 0 units SC .MODERATE SLIDING SC PRN PRN Reason: Moderate Correctional Scale Insulin Human Lispro (Humalog) 0 units SC .BEDTIME SLIDING SC PRN PRN Reason: Bedtime Correctional Scale Lorazepam (Ativan) 2 mg SLOW IVP Q15MIN PRN PRN Reason: Seizures Rivaroxaban (Xarelto) 20 mg PO DAILY [facility] Last Admin: 06/13/18 10:15 Dose: 20 mg Senna/Docusate Sodium (Senokot S) 2 tab PO BID PRN PRN Reason: Constipation
--- NOTE | 2018-06-13 19:47 | CON ---
DATE OF CONSULTATION: 06/13/2018 REASON FOR CONSULTATION: Syncope. HISTORY OF PRESENT ILLNESS: Mr. Burnett is a pleasant 67-year-old gentleman, who came to the hospital for episodes of loss of consciousness. He was at home. He was just sitting and then suddenly just went back, rolled his eyes up, and was out for just a few seconds and then came back to himself. He did this twice. The family brought him in for further evaluation. He denies any palpitations. No chest pain, tightness, or pressure. This has never happened in the past. PAST MEDICAL HISTORY: 1. Type 2 diabetes. 2. 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 3. Nephrolithiasis with lithotripsy. 4. Hyperlipidemia. 5. Obstructive sleep apnea, undiagnosed. OUTPATIENT MEDICATIONS: 1. Metformin 500 mg q.p.m. 2. Zocor 20 mg at bedtime. 3. Xarelto 20 mg daily. ALLERGIES: NO KNOWN DRUG ALLERGIES. SOCIAL HISTORY: No alcohol, tobacco, or drugs. FAMILY HISTORY: Mother in her 60s of end-stage renal disease, father with prostate cancer. REVIEW OF SYSTEMS: A 12-point review of systems was done and was found to be negative unless stated in the history of present illness. PHYSICAL EXAMINATION: VITAL SIGNS: Temperature 98.5, pulse 72, respiratory rate 20, sat 93% on room air, blood pressure 127/80. GENERAL: Awake, alert, and oriented x3. No distress. HEENT: Normocephalic and atraumatic. NECK: Supple. LUNGS: Clear. CARDIOVASCULAR: S1, S2. No S3 or S4. No murmurs. ABDOMEN: Soft. Positive bowel sounds. EXTREMITIES: No edema. SKIN: Warm and dry. LABORATORY DATA: Laboratory work was reviewed. CBC, coags, and chemistries were reviewed. Urine was negative. EKG was reviewed. MRI of the brain was unremarkable and electroencephalogram done by Dr. Miller was also normal. CT of the chest with contrast showed no evidence of pulmonary embolus without any other thoracic abnormality. ASSESSMENT: 1. Syncope. 2. History of deep venous thromboses, recurrent. 3. Chronic anticoagulation. PLAN: 1. Ruled out for possible neurological episodes. It could be related to sleep apnea or it could be related to a cardiac arrhythmia. He should be able to be discharged to home today. We will plan on setting up as an outpatient for an event monitor, 30 day. We will try to get him this early next week. We will also set him up for an outpatient stress test and a followup in 2 to 4 weeks once monitoring has been done for some time. 2. Per DPS guidelines, he cannot drive for 6 months until syncope free for 6 months or if we have figured out the reason and corrected it. I spoke with him about this. He understands, verbalized understanding of this. He is not happy, but his family will make sure he is not driving. Thank you for letting me to participate in the care of your patient. We will sign off. Please call with any questions. DISPOSITION: Follow up in the office in 2 to 4 weeks. We will send an event monitor and will set him up for a stress test as an outpatient. Job ID: [id number]
--- NOTE | 2018-06-14 22:13 | EKG ---
Test Reason : Blood Pressure : / mmHG Vent. Rate : 079 BPM Atrial Rate : 079 BPM P-R Int : 166 ms QRS Dur : 076 ms QT Int : 378 ms P-R-T Axes : 004 -26 -05 degrees QTc Int : 433 ms Normal sinus rhythm Normal ECG Confirmed by GUME BLANKENSHIP ([id number]), editorial clerk NANCY DOLL ([id number]) on 06/14/2018 10:13:12 PM Referred By: Confirmed By:GUME BLANKENSHIP
--- NOTE | 2018-06-15 15:33 | DIS ---
DATE OF ADMISSION: 06/12/2018 DATE OF DISCHARGE: 06/13/2018 DISCHARGE DISPOSITION: To home. PRIMARY DISCHARGE DIAGNOSIS: Syncope likely due to obstructive sleep apnea. SECONDARY DISCHARGE DIAGNOSES: History of recurrent deep venous thrombosis with current right lower extremity deep venous thrombosis, obesity, suspected sleep apnea, diabetes mellitus type 2, and dyslipidemia. PROCEDURES DONE DURING HOSPITALIZATION: The patient has had CT angio chest, which showed no evidence of PE. Right lower extremity venous Doppler done showed nonocclusive DVT of the mid calf, specifically involving the popliteal vein in this region. MRI brain showed no acute intracranial process. CT brain without contrast showed no acute intracranial abnormality. Echo with 2D Doppler showed EF of 60% to 65% with diastolic dysfunction. EEG done showed normal awake EEG. Urine culture no growth. H and H 14 and 43, platelet count 202. INR 1.6, PTT 28, BUN 14, creatinine 0.9, TSH 1.31, prolactin 9.9. BNP 15. INPATIENT CONSULT: Dr. Quiroga for Cardiology. DISCHARGE MEDICATIONS: 1. Metformin 500 mg p.o. q.a.m. 2. Simvastatin 20 mg p.o. q.h.s. 3. Aspirin 81 mg p.o. daily. 4. Xarelto 20 mg p.o. daily. ALLERGIES: NO KNOWN DRUG ALLERGIES. DISCHARGE PLAN: The patient to follow up with Dr. Quiroga in 2 to 4 weeks and primary care physician in 1 week. BRIEF COURSE DURING HOSPITALIZATION: The patient initially was brought to the ER on the after he passed out twice, sitting on his couch. He also had eye rolling and protrusion of his tongue during these episodes. These episodes lasted for less than a minute or two and the patient would wake up confused. In view of this, a complete cardiac and neurologic workup was done. He has had MRI brain and EEG, which did not reveal any abnormalities. The patient has had cardiology consultation with Dr. Quiroga. His echo showed good ejection fraction. The patient will be shortly discharged home, and Dr. Quiroga's office will set up event monitor for 30 days to rule out arrhythmias. He will also have further cardiac workup once he finishes his event monitoring via Dr. Quiroga's office. He is otherwise hemodynamically stable, and please see a [id number] documentation for the day of discharge on link bird. Job ID: [id number]
--- NOTE | 2018-06-16 09:29 | CON ---
DATE OF CONSULTATION: 06/12/18 CONSULTING PHYSICIAN: Hospitalist Service. HISTORY OF PRESENT ILLNESS: Mr. Burnett is a 67-year-old male with a past history of type 2 diabetes and a history of DVT, on Xarelto, who initially presented to the ER status post 3 separate syncopal episodes. 2 syncopal episodes have occurred more recently in the last week and a half. His first episode occurred while coughing wherein it was witnessed by family member where suddenly rolled his eyes backward and was unresponsive for a few seconds. He did not report any confusion afterwards, denied any symptoms of nausea, vomiting, tongue biting, urination, or defecation with the episode. There were no obvious times of tonic-clonic jerking or other seizure like activity. His second episode was similar to this first one; however, it was while he was sitting down on the couch talking on the phone when he again suddenly rolled his eyes backwards. He again, after the second episode, was not postictal; however, he did not remember the event at all. He was admitted for this syncopal episode and was observed on tele. There have been only a few PACs present on telemetry. He initially had a CT of his head done, which showed no evidence of any acute intracranial abnormalities. He additionally had a CT angio of his chest done, which showed no evidence of a PE and right lower extremity venous ultrasound Doppler was done showing a nonocclusive DVT of the mid calf involving the popliteal vein. He also had a CT brain that showed no acute intracranial abnormalities and an EKG that showed normal sinus rhythm. He also had an EEG, which was normal. 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 PAST MEDICAL HISTORY: 1. Type 2 diabetes. 2. Hypercholesterolemia. 3. History of 2 prior DVTs. 4. Nephrolithiasis with lithotripsy. ALLERGIES: NO KNOWN DRUG ALLERGIES. FAMILY HISTORY: Positive for mother having diabetes with end-stage renal disease, on dialysis. Father had prostate cancer. The patient denies family history of MS's or congestive heart failure. SOCIAL HISTORY: Denies smoking, alcohol, or drug use. CURRENT MEDICATIONS: 1. Metformin 500 mg extended release daily. 2. Zocor 20 mg at bedtime. 3. Xarelto 20 mg p.o. daily. PHYSICAL EXAMINATION: VITAL SIGNS: Temperature 98 degrees Fahrenheit, pulse 80, respiratory rate 20, oxygen saturation 94% on room air, blood pressure 117/77, orthostatic blood pressure within normal limits. GENERAL: No apparent distress, alert and oriented x3. HEENT: Mucous membranes moist. Pupils equal, round, and reactive to light and accommodation. CARDIOVASCULAR: Regular rate and rhythm. No murmurs, rubs, or gallops. Distant heart sounds. ABDOMEN: Soft, nontender to palpation, obese, hypoactive bowel sounds. RESPIRATORY: Clear to auscultation bilaterally. No wheezing, rhonchi, or rales. MUSCULOSKELETAL: No peripheral edema. DIAGNOSTIC STUDIES: LABS: White blood cell count 9.1, hemoglobin 14.6, hematocrit 43, platelets 202. Coags; PT 18.8, INR 1.6, PTT 28.2. Chemistry; sodium 134, potassium 3.9, chloride 103, CO2 of 22, BUN 14, creatinine 0.98, glucose 116, calcium 8.8, TSH 1.3. Prolactin 9.94. Troponin less than 0.010. AST 25, ALT 23, alk phos 65. IMAGING: Head CT; no acute intracranial process. Chest/thorax CTA; no CTA evidence of pulmonary embolus. Vascular ultrasound; nonocclusive DVT of the mid calf typically involving the popliteal vein in this region. EEG; normal awake EEG. Brain MRI; no evidence of acute intracranial process. ASSESSMENT AND PLAN: This is a 67-year-old gentleman with a past medical history of type 2 diabetes and recurrent history of deep vein thrombosis, on Xarelto, admitted for syncope. 1. Syncope. Does not appear to have been from a seizure, and although the first episode occurred with coughing, and could be a vasovagal event, we would recommend that from a cardiac standpoint, the patient be discharged with a heart monitor to better evaluate for arrhythmias. We would also recommend followup in the cardiology clinic for further outpatient syncopal workup. This patient also has a heart score of 4 and we would recommend an outpatient stress test. Orthostatics were negative on this patient as well. 2. Type 2 diabetes. High risk, would consier starting atorvastatin 40mg daily. We will defer diabetes management to primary team. 3. Acute on chronic recurrent deep vein thromboses. The patient is on Xarelto. This pt was seen with Dr. Quiroga. Job ID: [id number] [facility]
== END 2018-06-13 15:57 | disposition home or self-care (01) ==
LOC: ERS 21:38 → 2SW 06-12 03:15
PROVIDERS: ADMIT Internal Medicine; ATTEND Internal Medicine
DX: R55 Syncope and collapse (principal); I82.431 Acute embolism and thrombosis of right popliteal vein; I82.441 Acute embolism and thrombosis of right tibial vein; E11.9 Type 2 diabetes mellitus without complications; E78.00 Pure hypercholesterolemia, unspecified; E66.9 Obesity, unspecified; Z68.38 Body mass index [BMI] 38.0-38.9, adult; Z79.84 Long term (current) use of oral hypoglycemic drugs; Z87.442 Personal history of urinary calculi; Z79.01 Long term (current) use of anticoagulants; Z79.82 Long term (current) use of aspirin; Z79.899 Other long term (current) drug therapy
CPT/HCPCS: 36415; 36416; 70450; 70551; 71275; 80048; 80053; 81003; 82550; 83880; 84146; 84443; 84484; 85025; 85610; 85730; 87086; 90471; 90662; 90670; 93005; 93306; 95816; 95819; 96372; G0008; G0009; G0378; J1650; Q9966

== ENCOUNTER 2018-06-27 20:30 | Outpatient (CLI) | payer BC, MEDICARE | END 2018-06-27 20:31 | disposition home or self-care (01) | LOC: SLEEPLAB 20:30 | PROVIDERS: ATTEND Family Medicine | DX: G47.33 Obstructive sleep apnea (adult) (pediatric) (principal); E11.9 Type 2 diabetes mellitus without complications; E66.9 Obesity, unspecified; I10 Essential (primary) hypertension | CPT/HCPCS: 95811 ==

== ENCOUNTER 2018-07-09 07:14 | Emergency (ER) | payer BC, MEDICARE | END 2018-07-09 07:43 | disposition home or self-care (01) | LOC: ERS 07:14 | DX: M10.9 Gout, unspecified (principal); E11.9 Type 2 diabetes mellitus without complications; E78.5 Hyperlipidemia, unspecified; Z86.718 Personal history of other venous thrombosis and embolism; Z87.442 Personal history of urinary calculi; Z79.84 Long term (current) use of oral hypoglycemic drugs; Z79.899 Other long term (current) drug therapy | CPT/HCPCS: 99283 ==

== ENCOUNTER 2019-01-01 07:34 | Emergency (ER) | payer BC, MEDICARE ==
[2019-01-01 08:35] LABS: #Eosinphils 0.2 thou/uL (0.0-0.7); #Lymphocytes 1.8 thou/uL (1.20-3.40); #Monocytes 0.6 thou/uL (0.11-0.59); #Neutrophils 6.6 thou/uL (1.40-6.50); %Basophils 0.4 % (0.0-1.0); %Eosinophils 1.6 % (0.0-10.0); %Lymphocytes 19.4 % (21.0-51.0); %Monocytes 6.4 % (0.0-10.0); %Neutrophils 72.2 % (42.0-75.0); Hemoglobin 16.2 g/dL (14.0-18.0); Mean Corpuscular HGB CONC 34.1 g/dL (32.0-36.0); Mean Corpuscular Hemoglobin 30.4 pg (27.0-31.0); Mean Corpuscular Volume 89.2 fL (78.0-98.0); Mean Platelet Volume 6.4 fL (7.4-10.4); Platelet Count 227 thou/uL (130-400); RBC Distribution Width 12.8 % (11.5-14.5); Red Blood Cell (RBC) Count 5.33 mill/uL (4.70-6.10); White Blood Cell (WBC) Count 9.2 thou/uL (4.8-10.8)
[2019-01-01] MEDS ORDERED: Aspirin Chewable 81 MG TAB ONE (08:50)
[2019-01-01] MEDS ORDERED: Nitroglycerin 2% Ointment 1 INCH/1 GM Packet ONE (08:50)
--- NOTE | 2019-01-01 08:54 | RAD ---
LEFT SHOULDER THREE VIEWS: Indication: Left shoulder pain. Comparison: None. FINDINGS: No acute fracture or subluxation is evident. There is mild osteophytosis involving the inferior aspec t of the humeral head as well as the AC joint. Visualized left lung is clear. IMPRESSION: Mild left AC and glenohumeral osteoarthrosis. POS: OFF
--- NOTE | 2019-01-01 08:55 | RAD ---
CHEST ONE VIEW: Indication: History of left shoulder pain and chest pain. Comparison: 05-16-13 FINDINGS: Mild cardiomegaly is stable. Lungs are clear. No acute osseous abnormality is evident. IMPRESSION: No definite acute cardiopulmonary abnormality. POS: OFF
[2019-01-01 09:07] LABS: ALT (SGPT) 25 U/L (8-55); AST (SGOT) 22 U/L (5-34); Albumin 4.1 g/dL (3.4-4.8); Alkaline Phosphatase 76 U/L (40-150); Anion Gap 13 mmol/L (10-20); BUN (Urea Nitrogen) 13 mg/dL (8.4-25.7); Bilirubin, Total 0.6 mg/dL (0.2-1.2); Calc. Creatinine Clearance 0 mL/min (70-130); Calcium 9.3 mg/dL (7.8-10.44); Carbon Dioxide 25 mmol/L (23-31); Chloride 103 mmol/L (98-107); Estimated GFR-MDRD 70; Glucose 152 mg/dL (80-115); Potassium 4.2 mmol/L (3.5-5.1); Protein, Total 7.1 g/dL (5.8-8.1); Sodium 137 mmol/L (136-145)
== END 2019-01-01 09:55 | disposition home or self-care (01) ==
LOC: ERS 07:34
DX: M25.512 Pain in left shoulder (principal); E11.9 Type 2 diabetes mellitus without complications; E78.5 Hyperlipidemia, unspecified; E78.00 Pure hypercholesterolemia, unspecified; Z86.718 Personal history of other venous thrombosis and embolism; M10.9 Gout, unspecified; Z79.84 Long term (current) use of oral hypoglycemic drugs; Z79.899 Other long term (current) drug therapy
CPT/HCPCS: 36415; 71045; 80053; 84484; 85025; 93005

== ENCOUNTER 2020-01-14 19:17 | Inpatient (IN) | payer MEDICARE, OTHER ==
--- NOTE | 2020-01-14 20:05 | RAD ---
EXAM: Single view of the chest HISTORY: Sepsis COMPARISON: 01/01/2019 FINDINGS: Single view of the chest shows a normal sized cardiomediastinal silhouette. Bibasilar opaci ties may represent atelectasis or infiltrates. Degenerative changes are seen in the spine. IMPRESSION: Bibasilar atelectasis versus infiltrates
[2020-01-14 20:40] LABS: #Lymphocytes 0.5 thou/uL (1.20-3.40); #Neutrophils 10.3 thou/uL (1.40-6.50); %Basophils 0.3 % (0.0-1.0); %Eosinophils 0.2 % (0.0-10.0); %Lymphocytes 3.9 % (21.0-51.0); %Monocytes 8.2 % (0.0-10.0); %Neutrophils 87.4 % (42.0-75.0); Hemoglobin 15.1 g/dL (14.0-18.0); Mean Corpuscular HGB CONC 34.5 g/dL (32.0-36.0); Mean Corpuscular Hemoglobin 31.1 pg (27.0-31.0); Mean Corpuscular Volume 90.2 fL (78.0-98.0); Mean Platelet Volume 6.6 fL (7.4-10.4); Platelet Count 186 thou/uL (130-400); RBC Distribution Width 12.4 % (11.5-14.5); Red Blood Cell (RBC) Count 4.85 mill/uL (4.70-6.10); White Blood Cell (WBC) Count 11.7 thou/uL (4.8-10.8)
[2020-01-14 20:48] LABS: INR-International Normal Ratio 1.3; Prothrombin Time 16.2 sec (12.0-14.7)
[2020-01-14 20:54] LABS: ALT (SGPT) 19 U/L (8-55); AST (SGOT) 22 U/L (5-34); Acetaminophen Less than 6.0 mcg/mL (10.0-30.0); Albumin 3.6 g/dL (3.4-4.8); Alcohol Less than 10 mg/dL (Less than 10); Alkaline Phosphatase 54 U/L (40-110); Anion Gap 10 mmol/L (10-20); BUN (Urea Nitrogen) 15 mg/dL (8.4-25.7); Bilirubin, Total 0.8 mg/dL (0.2-1.2); Calc. Creatinine Clearance 0 mL/min (70-130); Calcium 8.4 mg/dL (7.8-10.44); Carbon Dioxide 24 mmol/L (23-31); Chloride 103 mmol/L (98-107); Estimated GFR-MDRD 67; Glucose 146 mg/dL (80-115); Lipase 29 U/L (8-78); Potassium 3.9 mmol/L (3.5-5.1); Protein, Total 6.6 g/dL (5.8-8.1); Salicylate Less than 8.0 mg/dL (15.0-30.0); Sodium 133 mmol/L (136-145)
[2020-01-14 21:00] LABS: CRP (Inflammatory) 2.14 mg/dL (= or < 0.5)
--- NOTE | 2020-01-14 22:17 | CT ---
EXAM: CT brain without contrast HISTORY: Altered mental status COMPARISON: 06/12/2018 TECHNIQUE: Multiple contiguous axial images were obtained and a CT of the brain without contrast. FINDINGS: There are subtle scattered hypodensities in the subcortical and periventricular white matte r consistent with small vessel ischemic disease. There is no evidence of hydrocephalus, intracranial hemorrhage, or extra-axial fluid collection. The calvarium and overlying soft tissues are unremarkable. The visualized paranasal sinuses and masto id air cells are well aerated. IMPRESSION: No evidence of acute intracranial abnormality
[2020-01-14] MEDS ORDERED: Vancomycin 1 GM/200 ML BAG ONE (22:19)
[2020-01-14 22:41] LABS: Bacteria/HPF None Seen HPF (None Seen); Bilirubin Negative (Negative); Blood, Urine Trace (Negative); Clarity Clear (Clear); Glucose, Urine (Dipstick) Normal (Negative); Ketone, Urine Negative (Negative); Leukocyte Negative Leu/uL (Negative); Nitrite Negative (Negative); Protein, Urine (Dipstick) Negative (Neg-Trace); RBC/HPF 0-3 HPF (0-3); Specific Gravity, Urine 1.016 (1.002-1.036); Squamous Epithelial None Seen HPF (0-3); Urobilinogen Normal mg/dL (Less than 2); WBC/HPF 0-3 HPF (0-3); pH, Urine 5.5 (5.0-9.0)
[2020-01-14 22:54] LABS: Amphetamine Not Detected (NotDetected); Barbiturates Screen Not Detected (NotDetected); Benzodiazepine Screen Not Detected (NotDetected); Cocaine Metabolite Screen Not Detected (NotDetected); Medtox Reader # READER 4; Methadone Not Detected (NotDetected); Methamphetamine Not Detected (NotDetected); Opiate Screen Detected (NotDetected); Oxycodone Screen Not Detected (NotDetected); Phencyclidine (PCP) Not Detected (NotDetected); THC/Cannabinoid Screen Not Detected (NotDetected); Tricyclic Screen Not Detected (NotDetected)
[2020-01-14 22:55] LABS: Medtox Control Line Valid? VALID (VALID)
[2020-01-15] MEDS ORDERED: Acetaminophen 325 MG TAB PO PRN (00:04)
[2020-01-15] MEDS ORDERED: Ondansetron ODT 4 MG TAB SL PRN (00:04)
[2020-01-15] MEDS ORDERED: Ondansetron PF 4 MG/2 ML Vial IVP PRN ×2 (00:04→01:14)
[2020-01-15] MEDS ORDERED: HYDROcodone/Acetaminophen 5/325 mg Tablet PO PRN ×3 (00:04→01:14)
[2020-01-15] MEDS ORDERED: Sodium Chloride 0.9% 1,000 ML IV SCH ×2 (00:04→01:15)
[2020-01-15 00:46] LABS: Lactic Acid 2.2 mmol/L (0.5-2.2)
--- NOTE | 2020-01-15 00:48 | PDOC.HHP ---
Hospitalist HPI - History of Present Illness Fever, altered mental status History of Present Illness: Patient is a 69 year old male with PMH borderline diabetes, hyperlipidemia, DVT in leg on Xarelto who presents to ED for altered mental status, syncope. 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 He went home and was walking up steps and fell, no head trauma, not known if LOC but patient was confused and "out of it." He lied in bed, and was afterwards confused and communicating through hand gestures. Urinated on himself and was too weak to ambulated. Patient brought to ED by EMS on concern of stroke. Patient is altered and disoriented, but able to answer questions, denies chest pain/shortness of breath/palpitations, no focal weakness or numbness. He has a history of a distant DVT, and is on xarelto. He states he is fine and wants to go home. In ED, patient tachycardic and febrile to 102.6, WBC 11.7, BP hypertensive. Denies alcohol or drug use, no bleeding. UA negative for UTI, Na 133, lactic acid 2.4, CRP 2.14 otherwise unremarkable labs. UA positive for opiate medication. did not recieve opiates in ED. COVID test pending. CXR w bilateral infiltrates, CT head unremarkable, patient admitted for further workup and care. Hospitalist ROS - Review of Systems Constitutional: reports: fever, chills, sweats, weakness Eyes: denies: pain, vision change, conjunctivae inflammation, eyelid inflammation, redness, other ENT: denies: ear pain, ear discharge, nose pain, nose discharge, nose congestion , mouth pain, mouth swelling, throat pain, throat swelling, other Respiratory: denies: cough, dry, shortness of breath, hemoptysis, SOB with excertion, pleuritic pain, sputum, wheezing, other Cardiovascular: denies: chest pain, palpitations, orthopnea, paroxysmal noc. dyspnea, edema, light headedness, other Gastrointestinal: denies: nausea, vomiting, abdominal pain, diarrhea, constipation, melena, hematochezia, other Genitourinary: denies: dysuria, frequency, incontinence, hematuria, retention, other Musculoskeletal: denies: neck pain, shoulder pain, arm pain, back pain, hand pain, leg pain, foot pain, other Skin: denies: rash, lesions, lokesh, bruising, other Neurological: denies: weakness, numbness, incoordination, change in speech, confusion, seizures, other All other systems reviewed; all pertinent +/- noted in HPI/Subj - Medication Medications: Xarelto TABLET, DOSE PACK : Strength - 15 mg (42)- 20 mg (9) : ORAL Patient Dose: SEE NOTES tab(s) Oral See Notes.STARTER PACK, TAKE DIRECTED. metFORMIN TABLET : Strength - 500 mg : ORAL Patient Dose: 1 tab(s) Oral. Hospitalist History - Past Medical History Other Medical History: borderline diabetes II, HLD, gout, DVT in leg, kidney stone, gout - Past Surgical History Other Surgical History: lithotripsy - Family History Family History: reports: no pertinent history - Social History Alcohol: reports: None Drugs: reports: none - Exam General Appearance: NAD, awake alert General - other findings: altered mental status Eye: PERRL, anicteric sclera ENT: normocephalic atraumatic, no oropharyngeal lesions, moist mucosa Neck: supple, symmetric, no JVD, no thyromegaly, no lymphadenopathy, no carotid bruit Heart: RRR, no murmur, no gallops, no rubs, normal peripheral pulses Respiratory: CTAB, no wheezes, no rales, no ronchi, normal chest expansion, no tachypnea, normal percussion Gastrointestinal: soft, non-tender, non-distended, normal bowel sounds, no palpable masses, no hepatomegaly, no splenomegaly, no bruit Extremities: no cyanosis, no clubbing, no edema Skin: normal turgor, no lesions, no rashes Neurological: cranial nerve grossly intact, normal sensation to touch, no weakness, no focal deficits, no new deficit Musculoskeletal: normal tone, normal strength, no muscle wasting Psychiatric: normal affect, normal behavior Psychiatric - other findings: altered mental status Hospitalist Results - Labs Result Diagrams: 01/14/20 20:33 01/14/20 20:33 Lab results: WBC 11.7 thou/uL (4.8-10.8) H 01/14/20 20:33 Hgb 15.1 g/dL (14.0-18.0) 01/14/20 20:33 Hct 43.8 % (42.0-52.0) 01/14/20 20:33 MCV 90.2 fL (78.0-98.0) 01/14/20 20:33 Plt Count 186 thou/uL (130-400) 01/14/20 20:33 Neutrophils % 87.4 % (42.0-75.0) H 01/14/20 20:33 ESR Westergren 18 mm/hr (Less than 20) 01/14/20 20:33 Sodium 133 mmol/L (136-145) L 01/14/20 20:33 Potassium 3.9 mmol/L (3.5-5.1) 01/14/20 20:33 Chloride 103 mmol/L (98-107) 01/14/20 20:33 Carbon Dioxide 24 mmol/L (23-31) 01/14/20 20:33 BUN 15 mg/dL (8.4-25.7) 01/14/20 20:33 Creatinine 1.10 mg/dL (0.7-1.3) 01/14/20 20:33 Glucose 146 mg/dL (80-115) H 01/14/20 20:33 Lactic Acid 2.2 mmol/L (0.5-2.2) 01/15/20 00:22 Calcium 8.4 mg/dL (7.8-10.44) 01/14/20 20:33 Total Bilirubin 0.8 mg/dL (0.2-1.2) 01/14/20 20:33 AST 22 U/L (5-34) 01/14/20 20:33 ALT 19 U/L (8-55) 01/14/20 20:33 Alkaline Phosphatase 54 U/L (40-110) 01/14/20 20:33 Ammonia 31 umol/L (18-72) 01/14/20 20:33 Creatine Kinase 85 U/L (30-200) 01/14/20 20:33 Troponin I 0.016 ng/mL (< 0.028) 01/14/20 20:33 C-Reactive Protein 2.14 mg/dL (= or < 0.5) H 01/14/20 20:33 Serum Total Protein 6.6 g/dL (5.8-8.1) 01/14/20 20:33 Albumin 3.6 g/dL (3.4-4.8) 01/14/20 20:33 Lipase 29 U/L (8-78) 01/14/20 20:33 Urine Ketones Negative mg/dL (Negative) 01/14/20 22:26 Urine Blood Trace (Negative) A 01/14/20 22:26 Urine Nitrite Negative (Negative) 01/14/20 22:26 Ur Leukocyte Esterase Negative Carmenza/uL (Negative) 01/14/20 22:26 Urine RBC 0-3 HPF (0-3) 01/14/20 22:26 Urine WBC 0-3 HPF (0-3) 01/14/20 22:26 Ur Squamous Epith Cells None Seen HPF (0-3) 01/14/20 22:26 Urine Bacteria None Seen HPF (None Seen) 01/14/20 22:26 Additional comment: VITAL SIGNS Gladis Jan 14, 2020 22:30 MT Sarmiento, Caity BP: 112/81 Pulse: 108 Resp: 18 Temp: 99.9 (Oral) Pain: 0 O2 sat: 95 on (Room Air) Time: 01/14/2020 22:30. Hospitalist H&P A/P - Plan Plan: Patient is a 69 year old male with PMH borderline diabetes, hyperlipidemia, DVT in leg on Xarelto who presents to ED for altered mental status, syncope. # sepsis, syncope, altered mental status, infiltrates on chest Xray - patient with fever to 102.6 and leukocytosis and tachycardia after extreme physical exertion on hot and humid day, will observe and continue IVF and monitor closely to ensure no infection present. CRP elevated. CXR is certainly concerning for COVID. - follow cultures - IVF - empiric abx - monitor on cardiac exercise specialist - follow up covid test, precautions ordered given infiltrates # borderline DM - SSI ordered # HLD - continue home medications # positive opiates on UDS - did not receive opiates here, ask about this once patient more awake perhaps # history of kidney stones - no flank pain, no UTI on urinalysis # history of DVT - continue xarelto, asa DVT/GI ppx
[2020-01-15] MEDS ORDERED: Labetalol HCl 100 MG/20 ML VIAL SLOW IVP PRN (01:14)
[2020-01-15] MEDS ORDERED: cloNIDine 0.1 MG TAB PO PRN (01:14)
[2020-01-15] MEDS ORDERED: Promethazine HCl 12.5 MG in Sodium Chloride 0.9% 50 ML IVPB PRN (01:14)
[2020-01-15] MEDS ORDERED: hydrALAZINE 20 MG/ML VIAL SLOW IVP PRN (01:14)
[2020-01-15] MEDS ORDERED: Electrolyte Replacement Protoc 1 EACH EACH FS PRN (01:15)
[2020-01-15] MEDS: Sodium Chloride 0.9% 1,000 ML IV SCH ×4 (02:00→23:55)
[2020-01-15] MEDS: Piperacillin/Tazobactam 4.5 GM in Sodium Chloride 0.9% 100 ML IVPB SCH ×4 (03:37→23:47)
[2020-01-15] MEDS: Acetaminophen 325 MG TAB PO PRN (03:42)
[2020-01-15 04:27] VITALS: BMI 33.0
[2020-01-15 06:12] LABS: #Lymphocytes 0.5 thou/uL (1.20-3.40); #Monocytes 0.8 thou/uL (0.11-0.59); #Neutrophils 8.4 thou/uL (1.40-6.50); %Basophils 0.1 % (0.0-1.0); %Eosinophils 0.1 % (0.0-10.0); %Lymphocytes 4.7 % (21.0-51.0); %Monocytes 8.6 % (0.0-10.0); %Neutrophils 86.5 % (42.0-75.0); Hemoglobin 13.9 g/dL (14.0-18.0); Mean Corpuscular HGB CONC 33.9 g/dL (32.0-36.0); Mean Corpuscular Hemoglobin 30.4 pg (27.0-31.0); Mean Corpuscular Volume 89.5 fL (78.0-98.0); Mean Platelet Volume 6.6 fL (7.4-10.4); Platelet Count 170 thou/uL (130-400); RBC Distribution Width 12.6 % (11.5-14.5); Red Blood Cell (RBC) Count 4.57 mill/uL (4.70-6.10); White Blood Cell (WBC) Count 9.7 thou/uL (4.8-10.8)
[2020-01-15 06:39] LABS: Lactic Acid 1.7 mmol/L (0.5-2.2)
[2020-01-15 06:45] LABS: Anion Gap 12 mmol/L (10-20); BUN (Urea Nitrogen) 11 mg/dL (8.4-25.7); Calc. Creatinine Clearance 108 mL/min (70-130); Carbon Dioxide 22 mmol/L (23-31); Chloride 106 mmol/L (98-107); Estimated GFR-MDRD 74; Glucose 182 mg/dL (80-115); Magnesium 1.5 mg/dL (1.6-2.6); Potassium 3.9 mmol/L (3.5-5.1); Sodium 136 mmol/L (136-145)
[2020-01-15] MEDS ORDERED: Magnesium 2 GM/50 ML 2 GM in Premix Bag 1 BAG IVPB SCH (07:30)
[2020-01-15] MEDS ORDERED: Non-Formulary Item 1 EACH (Rivaroxaban [Xarelto] 20 MG) PO SCH (09:00)
[2020-01-15] MEDS ORDERED: Vancomycin 1 GM in Premix Bag 1 BAG IVPB SCH (09:00)
[2020-01-15] MEDS: Famotidine 20 MG TAB PO SCH ×2 (09:50→20:44)
[2020-01-15] MEDS: Aspirin Chewable 81 MG TAB PO SCH (09:50)
[2020-01-15] MEDS: Rivaroxaban 10 MG TAB PO SCH (09:51)
[2020-01-15] MEDS: Vancomycin 1.5 GRAM/300 ML BAG 1.5 GM in Premix Bag 1 BAG IVPB SCH ×2 (09:53→20:43)
[2020-01-15 13:52] LABS: SARS-CoV-2 MS2 Positive; SARS-CoV-2 N Gene Negative; SARS-CoV-2 S Gene Negative; SARS-CoV-2 by NAA Not Detected (NotDetected); SARS-CoV-2 orf1ab Negative
[2020-01-15] MEDS: HumaLOG 300 UNITS/3 ML VIAL SC PRN (18:10)
[2020-01-15] MEDS: Atorvastatin Calcium 10 MG TAB PO SCH (20:44)
[2020-01-16] MEDS: Piperacillin/Tazobactam 4.5 GM in Sodium Chloride 0.9% 100 ML IVPB SCH ×4 (05:29→20:46)
[2020-01-16] MEDS: Sodium Chloride 0.9% 1,000 ML IV SCH ×2 (05:30→19:25)
[2020-01-16 08:12] LABS: Vancomycin, Trough 10.3 ug/mL
--- NOTE | 2020-01-16 08:59 | PDOC.HOSPP ---
- Subjective Encounter Date: 01/16/20 Encounter Time: 12:00 Subjective: Patient feeling better. Able to get up and ambulate to the bathroom himself. No further confusion. - Objective Vital Signs & Weight: Vital Signs (12 hours) Temp Pulse Resp BP Pulse Ox 01/16/20 07:16 98.5 F 87 17 149/78 H 93 L 01/16/20 04:46 99.4 F 63 18 129/72 100 Weight Weight 237 lb 2 oz I&O: 01/15/20 01/16/20 01/17/20 06:59 06:59 06:59 Intake Total 300 1150 Output Total 800 Balance -500 1150 Result Diagrams: 01/15/20 05:56 01/15/20 05:56 Additional Labs: Accuchecks 01/16/20 01/15/20 01/15/20 04:23 19:23 13:32 POC Glucose 154 H 141 H 148 H Hospitalist ROS - Review of Systems Constitutional: denies: fever, chills Respiratory: denies: cough, shortness of breath Cardiovascular: denies: chest pain, palpitations, orthopnea Gastrointestinal: denies: nausea, vomiting, abdominal pain Genitourinary: denies: dysuria, hematuria - Medication Medications: Active Medications Generic Name Dose Route Start Last Admin Trade Name Freq PRN Reason Stop Dose Admin Acetaminophen 650 mg 01/15/20 01:14 01/15/20 03:42 Tylenol PO 650 mg Q4H PRN Administration Headache/Fever/Mild Pain (1-3) Aspirin 81 mg 01/15/20 09:00 01/15/20 09:50 Aspirin Chewable PO 81 mg DAILY LEILANI Administration Atorvastatin Calcium 10 mg 01/15/20 21:00 01/15/20 20:44 Lipitor PO 10 mg HS LEILANI Administration Famotidine 20 mg 01/15/20 09:00 01/15/20 20:44 Pepcid PO 20 mg BID LEILANI Administration Sodium Chloride 1,000 mls @ 125 mls/hr 01/15/20 01:39 01/16/20 05:30 Normal Saline 0.9% IV 1,000 mls .Q8H LEILANI Administration Vancomycin HCl 1.5 gm/ Device 300 mls @ 200 mls/hr 01/15/20 09:00 01/15/20 20 :43 IVPB 300 mls Q12HR LEILANI Administration Piperacillin Sod/Tazobactam 100 mls @ 200 mls/hr 01/15/20 23:59 01/16/20 05: 29 Sod 4.5 gm/ Sodium Chloride IVPB 100 mls Q6HR LEILNAI Administration Insulin Human Lispro 0 units 01/15/20 01:14 01/15/20 18:10 Humalog SC 2 unit .MILD SLIDING SCALE PRN Administration Mild Correctional Scale Rivaroxaban 20 mg 01/15/20 09:00 01/15/20 09:51 Xarelto PO 20 mg DAILY LEILANI Administration Sodium Chloride 10 ml 01/15/20 09:00 01/15/20 20:44 Flush - Normal Saline IVF 10 ml Q12HR LEILANI Administration - Exam General Appearance: NAD, awake alert ENT: moist mucosa Heart: RRR, no murmur, no gallops, no rubs Respiratory: CTAB, no wheezes, no rales, no ronchi Gastrointestinal: soft, non-tender, non-distended, normal bowel sounds Psychiatric: normal affect, normal behavior, A&O x 3 Hosp A/P (1) Sepsis Code(s): A41.9 - SEPSIS, UNSPECIFIED ORGANISM Status: Acute Qualifiers: Sepsis type: Pseudomonas (2) Syncope Code(s): R55 - SYNCOPE AND COLLAPSE Status: Resolved (3) Metabolic encephalopathy Code(s): G93.41 - METABOLIC ENCEPHALOPATHY Status: Acute - Plan # sepsis, syncope, altered mental status, infiltrates on chest Xray - patient with fever to 102.6 and leukocytosis and tachycardia after extreme physical exertion on hot and humid day, Covid-19 negative, Blood cultures 2/2 growing Pseudomonas. - follow cultures- 2/2 Pseudomonas, Dr. Virgen consulted - IVF - empiric abx- Zosyn and Vanc since No tachycardia so no need for a panel monitor - Encephalopathy resolving # borderline DM - SSI ordered # HLD - continue home medications # positive opiates on UDS - did not receive opiates here, ask about this once patient more awake perhaps # history of kidney stones - no flank pain, no UTI on urinalysis # history of DVT - continue xarelto, asa DVT/GI ppx Xarelto/Pepcid
[2020-01-16] MEDS: Aspirin Chewable 81 MG TAB PO SCH (10:16)
[2020-01-16] MEDS: Vancomycin 1.5 GRAM/300 ML BAG 1.5 GM in Premix Bag 1 BAG IVPB SCH ×2 (10:16→16:27)
[2020-01-16] MEDS: Rivaroxaban 10 MG TAB PO SCH (10:16)
[2020-01-16] MEDS: Famotidine 20 MG TAB PO SCH ×2 (10:16→20:40)
[2020-01-16] MEDS ORDERED: Iopamidol-370 76% 500 ML 1 ML ONE (10:53)
--- NOTE | 2020-01-16 14:38 | EKG ---
Test Reason : Blood Pressure : / mmHG Vent. Rate : 129 BPM Atrial Rate : 129 BPM P-R Int : 158 ms QRS Dur : 074 ms QT Int : 292 ms P-R-T Axes : 056 -28 025 degrees QTc Int : 427 ms Sinus tachycardia Nonspecific T wave abnormality Abnormal ECG Confirmed by MERVIN MAYNARD, CALLY Brito ([id number]), editor map ANGELA GARCIA ([id number]) on 01/16/2020 2:38:26 PM Referred By: Confirmed By:CALLY JEFFRIES MD
--- NOTE | 2020-01-16 19:36 | CT ---
CT ABDOMEN AND PELVIS WITH IV CONTRAST: 01/16/20 PROVIDED CLINICAL HISTORY: Bacteremia. FINDINGS: Comparison is made with the study dated 07/18/17 from [facility]. The visualized lung bases are free of significant opacity. The liver, spleen, pancreas, kidneys and adrenal glands demonstrate an unremarkable CT appearance. A gallstone is seen. The gallbladder is decompressed. There is no bowel dilatation, inflammatory fat stranding, free fluid, or free air apparent. The appen arianne appears normal. Sigmoid colonic diverticulosis is noted without CT evidence for diverticulitis. The regional major vascular structures appear unremarkable. The osseous structures demonstrate no concerning lytic or blastic lesions. IMPRESSION: No evidence for an acute process. POS: NEVA
[2020-01-16] MEDS: Atorvastatin Calcium 10 MG TAB PO SCH (20:40)
[2020-01-16] MEDS: Acetaminophen 325 MG TAB PO PRN (20:41)
--- NOTE | 2020-01-16 21:35 | CON ---
DATE OF CONSULTATION: 01/16/2020 REASON FOR CONSULTATION: Bacteremia. HISTORY OF PRESENT ILLNESS: A 69-year-old patient who has a history of deep vein thrombosis and nephrolithiasis in the past, has required stenting and lithotripsy. He also has obstructive sleep apnea and diabetes type 2. The last admission was for management of deep vein thrombosis. He, at this time, developed delirium and without any specific symptoms. The son brought him to the hospital. 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 He did have a temperature 102.4, saturating 95% on room air. He is little bit tachycardic. Normal blood pressure. The exam was otherwise not particularly remarkable. He does report to urinary incontinence and urgency from time to time, but no dysuria. No headaches, visual symptoms, sore throat, odynophagia, or dysphagia. No dyspnea or cough. No back pain. No abdominal pain. No diarrhea. No joint symptoms or skin disorder. PAST MEDICAL HISTORY: Obesity, hyperlipidemia, DVT, nephrolithiasis, stenting, and lithotripsy, gout. SOCIAL HISTORY: He lives in the area with son. Never smoker. 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 ALLERGIES: NONE. MEDICATIONS: Xarelto and metformin. CURRENT MEDICATIONS: Include also, 1. Lipitor. 2. Catapres. 3. Pepcid. 4. Vancomycin. 5. Piperacillin-tazobactam. FAMILY HISTORY: Noncontributory. ALLERGIES: NONE. PHYSICAL EXAMINATION: VITAL SIGNS: T-max 102, now is 98.5. Other vital signs are fairly normal. O2 saturations are 93 on room air. GENERAL: Sitting by the bedside and asking when is he going home. HEENT: Severe hearing impairment. His hearing aid needs to have the batteries replaced. He has no areas of skin breakdown. Peripheral IV access. No Jackson catheter. He has no lymphadenopathy. No skin lesions. Ocular movements conjugate. Conjunctivae normal. Sclerae white. Oral cavity with numerous missing teeth. Oral mucosa normal. NECK: Supple. No jugular vein distention. LUNGS: Symmetric. Clear breath sounds. BACK: No back tenderness. HEART: S1, S2. Diminished heart sounds. Regular rate. No obvious murmurs. No S3. ABDOMEN: Protuberant. No bladder distention. No joint inflammatory activity. No edema. Pulses 1+ in dorsalis pedis. Plantar responses are flexor. No clonus. Strength is preserved in all 4 extremities. Awake, oriented, follows commands. Hearing impairment is severe, but otherwise he is oriented. Mentation appears to be normal. Speech appears to be normal. LABORATORY DATA: White cell count 11.7 and 9.7, hemoglobin 15, platelets 186 with 87% neutrophils. INR 1.3. Sodium of 133, creatinine 1.1. Liver profile normal. Albumin 3.6. Urinalysis was normal. COVID not detected. Tox screen of opiates. IMAGING STUDIES: Brain CT unremarkable. Chest x-ray unremarkable. ASSESSMENT: History of type 2 diabetes, obesity, hypertension, nephrolithiasis in the past. He has urinary incontinence intermittently and now presents with bacteremia due to Pseudomonas aeruginosa pending susceptibilities. DISCUSSION: The differential diagnosis includes urinary tract infection, recurrence of nephrolithiasis, pyelonephritis, prostatitis. An intra-abdominal inflammatory process, not yet disclosed by the symptoms and evaluation thus far is possible, but less likely. Respiratory tract infection is unlikely. Endocarditis unlikely. We will scan his abdomen and pelvis with contrast and await on susceptibility studies of the organism and go from there. Job ID: [id number] [facility]
[2020-01-17] MEDS: Vancomycin 1.5 GRAM/300 ML BAG 1.5 GM in Premix Bag 1 BAG IVPB SCH ×4 (00:32→21:09)
[2020-01-17] MEDS: Sodium Chloride 0.9% 1,000 ML IV SCH ×3 (01:21→19:27)
[2020-01-17] MEDS: Piperacillin/Tazobactam 4.5 GM in Sodium Chloride 0.9% 100 ML IVPB SCH ×4 (02:14→20:01)
[2020-01-17 06:05] LABS: #Eosinphils 0.2 thou/uL (0.0-0.7); #Monocytes 0.8 thou/uL (0.11-0.59); #Neutrophils 4.3 thou/uL (1.40-6.50); %Basophils 0.3 % (0.0-1.0); %Eosinophils 3.2 % (0.0-10.0); %Lymphocytes 15.7 % (21.0-51.0); %Monocytes 13.3 % (0.0-10.0); %Neutrophils 67.4 % (42.0-75.0); Hemoglobin 14.2 g/dL (14.0-18.0); Mean Corpuscular HGB CONC 33.8 g/dL (32.0-36.0); Mean Corpuscular Volume 91.6 fL (78.0-98.0); Mean Platelet Volume 6.9 fL (7.4-10.4); Platelet Count 149 thou/uL (130-400); RBC Distribution Width 12.6 % (11.5-14.5); Red Blood Cell (RBC) Count 4.57 mill/uL (4.70-6.10); White Blood Cell (WBC) Count 6.3 thou/uL (4.8-10.8)
[2020-01-17 06:20] LABS: Anion Gap 11 mmol/L (10-20); BUN (Urea Nitrogen) 10 mg/dL (8.4-25.7); Calc. Creatinine Clearance 113 mL/min (70-130); Calcium 8.2 mg/dL (7.8-10.44); Carbon Dioxide 20 mmol/L (23-31); Chloride 109 mmol/L (98-107); Estimated GFR-MDRD 79; Glucose 119 mg/dL (80-115); Potassium 4.2 mmol/L (3.5-5.1); Sodium 136 mmol/L (136-145)
[2020-01-17 08:20] LABS: Vancomycin, Trough 24.4 ug/mL
[2020-01-17] MEDS: Famotidine 20 MG TAB PO SCH ×2 (09:39→20:01)
[2020-01-17] MEDS: Aspirin Chewable 81 MG TAB PO SCH (09:40)
[2020-01-17] MEDS: Rivaroxaban 10 MG TAB PO SCH (09:40)
--- NOTE | 2020-01-17 18:55 | PDOC.HOSPP ---
- Subjective Encounter Date: 01/17/20 Encounter Time: 10:40 Subjective: No new complaints. - Objective Vital Signs & Weight: Vital Signs (12 hours) Temp Pulse Resp BP Pulse Ox 01/17/20 09:40 97 01/17/20 08:00 97.6 F 67 20 150/95 H 95 Weight Weight 237 lb 2 oz I&O: 01/16/20 01/17/20 01/18/20 06:59 06:59 06:59 Intake Total 1150 4312 240 Output Total 210 Balance 1150 4102 240 Result Diagrams: 01/17/20 05:24 01/17/20 05:24 Additional Labs: Accuchecks 01/17/20 01/17/20 01/17/20 16:13 11:16 05:12 POC Glucose 133 H 121 H 105 01/16/20 20:24 POC Glucose 170 H Hospitalist ROS - Review of Systems Constitutional: denies: fever, chills, sweats, weakness, malaise, other Eyes: denies: pain, vision change, conjunctivae inflammation, eyelid inflammation, redness, other ENT: denies: ear pain, ear discharge, nose pain, nose discharge, nose congestion , mouth pain, mouth swelling, throat pain, throat swelling, other Respiratory: denies: cough, dry, shortness of breath, hemoptysis, SOB with excertion, pleuritic pain, sputum, wheezing, other Cardiovascular: denies: chest pain, palpitations, orthopnea, paroxysmal noc. dyspnea, edema, light headedness, other Gastrointestinal: denies: nausea, vomiting, abdominal pain, diarrhea, constipation, melena, hematochezia, other Genitourinary: denies: dysuria, frequency, incontinence, hematuria, retention, other Musculoskeletal: denies: neck pain, shoulder pain, arm pain, back pain, hand pain, leg pain, foot pain, other Skin: denies: rash, lesions, lokesh, bruising, other Neurological: denies: weakness, numbness, incoordination, change in speech, confusion, seizures, other - Medication Medications: Active Medications Generic Name Dose Route Start Last Admin Trade Name Freq PRN Reason Stop Dose Admin Acetaminophen 650 mg 01/15/20 01:14 01/16/20 20:41 Tylenol PO 650 mg Q4H PRN Administration Headache/Fever/Mild Pain (1-3) Aspirin 81 mg 01/15/20 09:00 01/17/20 09:40 Aspirin Chewable PO 81 mg DAILY LEILANI Administration Atorvastatin Calcium 10 mg 01/15/20 21:00 01/16/20 20:40 Lipitor PO 10 mg HS LEILANI Administration Famotidine 20 mg 01/15/20 09:00 01/17/20 09:39 Pepcid PO 20 mg BID LEILANI Administration Sodium Chloride 1,000 mls @ 125 mls/hr 01/15/20 01:39 01/17/20 09:38 Normal Saline 0.9% IV 1,000 mls .Q8H LEILANI Administration Piperacillin Sod/Tazobactam 100 mls @ 200 mls/hr 01/16/20 20:00 01/17/20 14: 36 Sod 4.5 gm/ Sodium Chloride IVPB 100 mls Q6H LEILANI Administration Insulin Human Lispro 0 units 01/15/20 01:14 01/15/20 18:10 Humalog SC 2 unit .MILD SLIDING SCALE PRN Administration Mild Correctional Scale Rivaroxaban 20 mg 01/15/20 09:00 01/17/20 09:40 Xarelto PO 20 mg DAILY LEILANI Administration Sodium Chloride 10 ml 01/15/20 09:00 01/17/20 14:40 Flush - Normal Saline IVF Not Given Q12HR LEILANI - Exam General Appearance: awake alert Eye: PERRL ENT: normocephalic atraumatic, no oropharyngeal lesions ENT - other findings: Hard of hearing Neck: supple, symmetric, no JVD, no thyromegaly Heart: RRR, no murmur, no gallops, no rubs, diminshed peripheral pulses Respiratory: CTAB, no wheezes, no rales, no ronchi Gastrointestinal: soft, non-tender, non-distended, normal bowel sounds Extremities: no cyanosis, no clubbing, no edema Skin: normal turgor, no lesions Neurological: cranial nerve grossly intact, normal sensation to touch Musculoskeletal: normal tone, normal strength Psychiatric: normal affect, A&O x 3 Hosp A/P (1) Sepsis Code(s): A41.9 - SEPSIS, UNSPECIFIED ORGANISM Status: Acute Qualifiers: Sepsis type: Pseudomonas Sepsis acute organ dysfunction status: without acute organ dysfunction Qualified Code(s): A41.52 - Sepsis due to Pseudomonas Plan: Cont current abx. 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 (4) Hyperlipemia Code(s): E78.5 - HYPERLIPIDEMIA, UNSPECIFIED Status: Chronic Qualifiers: Hyperlipidemia type: unspecified Qualified Code(s): E78.5 - Hyperlipidemia , unspecified Plan: Cont Statins (5) Obesity (BMI 30-39.9) Code(s): E66.9 - OBESITY, UNSPECIFIED Status: Chronic Plan: Will discuss about diet and exercise prior to dc. - Plan PPx: Xarelto and Pepscid. CODE: Full. Dispo: Cont current mgt
[2020-01-17] MEDS: Atorvastatin Calcium 10 MG TAB PO SCH (20:01)
[2020-01-17] MEDS: HumaLOG 300 UNITS/3 ML VIAL SC PRN (21:10)
[2020-01-18] MEDS: Piperacillin/Tazobactam 4.5 GM in Sodium Chloride 0.9% 100 ML IVPB SCH ×2 (01:28→08:16)
[2020-01-18] MEDS: Sodium Chloride 0.9% 1,000 ML IV SCH ×3 (01:32→13:26)
[2020-01-18 06:02] LABS: #Eosinphils 0.4 thou/uL (0.0-0.7); #Lymphocytes 1.5 thou/uL (1.20-3.40); #Monocytes 0.8 thou/uL (0.11-0.59); #Neutrophils 4.3 thou/uL (1.40-6.50); %Basophils 0.3 % (0.0-1.0); %Eosinophils 5.5 % (0.0-10.0); %Lymphocytes 21.2 % (21.0-51.0); %Monocytes 11.5 % (0.0-10.0); %Neutrophils 61.4 % (42.0-75.0); Hemoglobin 13.5 g/dL (14.0-18.0); Mean Corpuscular HGB CONC 33.7 g/dL (32.0-36.0); Mean Corpuscular Hemoglobin 30.3 pg (27.0-31.0); Mean Corpuscular Volume 89.9 fL (78.0-98.0); Mean Platelet Volume 7.1 fL (7.4-10.4); Platelet Count 179 thou/uL (130-400); RBC Distribution Width 12.5 % (11.5-14.5); Red Blood Cell (RBC) Count 4.46 mill/uL (4.70-6.10); White Blood Cell (WBC) Count 6.9 thou/uL (4.8-10.8)
[2020-01-18 06:23] LABS: Anion Gap 11 mmol/L (10-20); BUN (Urea Nitrogen) 13 mg/dL (8.4-25.7); Calc. Creatinine Clearance 102 mL/min (70-130); Calcium 8.3 mg/dL (7.8-10.44); Carbon Dioxide 23 mmol/L (23-31); Chloride 107 mmol/L (98-107); Estimated GFR-MDRD 70; Glucose 104 mg/dL (80-115); Potassium 3.9 mmol/L (3.5-5.1); Sodium 137 mmol/L (136-145)
[2020-01-18] MEDS: Rivaroxaban 10 MG TAB PO SCH (08:18)
[2020-01-18] MEDS: Aspirin Chewable 81 MG TAB PO SCH (08:18)
[2020-01-18] MEDS: Famotidine 20 MG TAB PO SCH (08:18)
[2020-01-18] MEDS: Vancomycin 1.5 GRAM/300 ML BAG 1.5 GM in Premix Bag 1 BAG IVPB SCH (11:16)
--- NOTE | 2020-01-18 11:21 | PDOC.HOSPP ---
- Subjective Encounter Date: 01/18/20 Encounter Time: 11:20 Subjective: no fever, etc - Objective Vital Signs & Weight: Vital Signs (12 hours) Temp Pulse Resp BP Pulse Ox 01/18/20 08:30 98.0 F 61 20 147/91 H 97 Weight Weight 237 lb 2 oz I&O: 01/17/20 01/18/20 01/19/20 06:59 06:59 06:59 Intake Total 4312 5430 Output Total 210 900 Balance 4102 4530 Result Diagrams: 01/18/20 05:31 01/18/20 05:31 Additional Labs: Accuchecks 01/18/20 01/17/20 01/17/20 04:26 20:06 16:13 POC Glucose 99 211 H 133 H 01/17/20 11:16 POC Glucose 121 H Hospitalist ROS - Medication Medications: Active Medications Generic Name Dose Route Start Last Admin Trade Name Freq PRN Reason Stop Dose Admin Acetaminophen 650 mg 01/15/20 01:14 01/16/20 20:41 Tylenol PO 650 mg Q4H PRN Administration Headache/Fever/Mild Pain (1-3) Aspirin 81 mg 01/15/20 09:00 01/18/20 08:18 Aspirin Chewable PO 81 mg DAILY LEILANI Administration Atorvastatin Calcium 10 mg 01/15/20 21:00 01/17/20 20:01 Lipitor PO 10 mg HS LEILANI Administration Famotidine 20 mg 01/15/20 09:00 01/18/20 08:18 Pepcid PO 20 mg BID LEILANI Administration Sodium Chloride 1,000 mls @ 125 mls/hr 01/15/20 01:39 01/18/20 04:13 Normal Saline 0.9% IV 1,000 mls .Q8H LEILANI Administration Piperacillin Sod/Tazobactam 100 mls @ 200 mls/hr 01/16/20 20:00 01/18/20 08: 16 Sod 4.5 gm/ Sodium Chloride IVPB 100 mls Q6H LEILANI Administration Insulin Human Lispro 0 units 01/15/20 01:14 01/17/20 21:10 Humalog SC 3 unit .MILD SLIDING SCALE PRN Administration Mild Correctional Scale Rivaroxaban 20 mg 01/15/20 09:00 01/18/20 08:18 Xarelto PO 20 mg DAILY LEILANI Administration Sodium Chloride 10 ml 01/15/20 09:00 01/18/20 08:24 Flush - Normal Saline IVF Not Given Q12HR LEILANI - Exam General Appearance: awake alert Neck: no JVD Heart: RRR, no murmur Respiratory: CTAB Gastrointestinal: soft, non-tender, normal bowel sounds Extremities: no edema Hosp A/P (1) Bacteremia due to Gram-negative bacteria Code(s): R78.81 - BACTEREMIA Status: Acute (2) Sepsis Code(s): A41.9 - SEPSIS, UNSPECIFIED ORGANISM Status: Acute Qualifiers: Sepsis type: Pseudomonas Sepsis acute organ dysfunction status: without acute organ dysfunction Qualified Code(s): A41.52 - Sepsis due to Pseudomonas (3) DVT (deep venous thrombosis) Code(s): I82.409 - ACUTE EMBOLISM AND THOMBOS UNSP DEEP VN UNSP LOWER EXTREMITY Status: Acute Qualifiers: DVT location: lower extremity Chronicity: acute Laterality: right (4) Diabetes Code(s): E11.9 - TYPE 2 DIABETES MELLITUS WITHOUT COMPLICATIONS Status: Chronic Qualifiers: Diabetes mellitus type: type 2 Diabetes mellitus nursing home insulin use: without nursing home use Diabetes mellitus complication status: with unspecified complications - Plan cont zosyn iv cont anticoag discuss with ID
--- NOTE | 2020-01-18 13:32 | PRG ---
DATE OF SERVICE: 01/18/2020 SUBJECTIVE: Feeling well, back to normal. No pain and no headaches. Minimal cough. No back pain. No abdominal pain or diarrhea. Voiding without difficulty. Sometimes leaks urine, but not much. No joint symptoms. OBJECTIVE: VITAL SIGNS: He has been afebrile and he had 102 when he came in and since then has been normal. Other vital signs are normal. SKIN: Without any areas of breakdown. Peripheral IV access. He is voiding in the toilet. No lymphadenopathy. HEENT: Normal. LUNGS: Clear. HEART: S1 and S2. Regular rate without murmurs. Diminished heart sounds. ABDOMEN: Soft, not distended or tender. No ascites. No bladder distention. EXTREMITIES: No joint inflammatory activity. No cellulitis. LABORATORY DATA: White cell count of 6.9, hemoglobin 13.5, and platelets 179. Creatinine 1.05, bilirubin was 0.8, AST 22, ALT was 19, alkaline phosphatase 54, and albumin 3.6. IMAGING STUDIES: Abdomen and pelvis CT was done on 01/15 and this was compared with 08/04 [facility] study. Lung bases were clear. There was a gallstone, gallbladder was decompressed, bowel was normal. There was some sigmoid diverticulosis, but no diverticulitis. Vascular structures normal. No evidence of acute process. ASSESSMENT: 1. Type 2 diabetes. 2. Obesity. 3. Hypertension. 4. Nephrolithiasis in the past. 5. Now delirium associated with bacteremia secondary to Pseudomonas aeruginosa. The samples were drawn at same time pretty much less, so that, it should be considered as just one sample, so we do not know if this is a transient or continuous bacteremia. It appears clinically to be more transient. The only abnormal findings are the chest x-ray on admission and that could be just interstitial findings due to the bacteremia. It probably had transient bacteremia from Pseudomonas aeruginosa. Pseudomonas aeruginosa usually originates in the gastrointestinal tract, urinary tract, or respiratory tract in patients who do not have devices like him. Endocarditis is uncommon usually seen in patients with history of IV drug use or with devices. At this point, I would advise transitioning to oral Cipro and treat him for another 2 weeks or so, maybe 10 to 14 days and follow up in the clinic. Job ID: [id number]
[2020-01-18 16:28] VITALS: BP 155/97; TEMP 97.8
[2020-01-18] MEDS ORDERED: Ciprofloxacin 500 MG TAB PO SCH (20:00)
--- NOTE | 2020-01-19 07:37 | DIS ---
DATE OF ADMISSION: 01/14/2020 DATE OF DISCHARGE: 01/18/2020 PRIMARY CARE PHYSICIAN: None DIAGNOSES: Sepsis syndrome, metabolic encephalopathy, bacteremia with Pseudomonas species, diabetes mellitus type 2, deep vein thrombosis, on anticoagulation, obstructive sleep apnea. DISCHARGE MEDICATIONS: In addition to his regular medications, he was discharged on 10 days of Cipro 500 mg p.o. b.i.d. He takes; 1. Aspirin 81 mg a day. 2. Xarelto 20 mg a day. 3. Zocor 20 mg a day. 4. Metformin 500 mg a day. ALLERGIES: NO KNOWN DRUG ALLERGIES. PENDING AT TIME OF DISCHARGE: Nothing. CODE STATUS: Full. DIET: Diabetic. CONSULTATIONS: Dr. Vern Virgen, Infectious Disease. PROCEDURES: None. HOSPITAL COURSE: The patient admitted through the emergency department to the Hospitalist Service with fever, altered mental status, sepsis syndrome was started with altered mental status, possible infiltrates on chest x-ray. Empiric antibiotics followed blood cultures. He had a history of renal stones. Pertinent laboratory, basic metabolic profile was normal except for a blood sugar of 146. Lactic acid was borderline 2.2. Liver function tests were normal. Ammonia was normal. Troponin normal. CBC had a mildly elevated white count at 11.7, hemoglobin 15.1, platelet count 186,000. His microbiology, urine culture negative. Urine was clear. He grew Pseudomonas aeruginosa, which was sensitive to amikacin, cefepime, ceftazidime, ciprofloxacin, gentamicin, levofloxacin, meropenem, piperacillin/tazobactam, tobramycin. He was put on Zosyn initially. Today, he has been transitioned to Cipro. I have discussed the case with Dr. Virgen. Further studies were done. Chest x-ray, bibasilar atelectasis. Brain CT unremarkable. Abdomen and pelvis CT, no acute process. He is alert, cooperative, pleasant, afebrile. Cardiorespiratory exam unremarkable. Abdomen benign. Discussed the case with Dr. Virgen. He will take the Cipro for [address] Virgen in 3 weeks for followup. Job ID: [id number]
--- NOTE | 2020-01-21 06:39 | PQF ---
Dear : Sapna Fishman Date / Time: 01/21/20 Please exercise your independent, professional judgment in responding to the clarification form. Clinical indicators are provided on the bottom of this form for your review Can you please further clarify the diagnosis of the patient? Please check appropriate box(es): Conflicting documentation was noted in the Medical Record; please clarify if patient is being treated/monitored for: [ x ] Sepsis [ ] Pseudomonas Bacteremia only (No Sepsis/Sepsis syndrome) [ ] Other diagnosis please specify [ ] Unable to determine Physician Signature: Date/Time: For continuity of documentation, please document condition throughout progress notes and discharge summary. Thank You. To be completed by CDI/Coding staff for physician review: Present Clinical Indicators - Signs / Symptoms / Labs Results and Location in Medical Record [ x ] Presented to ED for altered mental status H and P pg.1 [ x ] Sepsis syndrome DS pg.1 [ x ] Patient tachycardic and febrile 10 y02.6, WBC 11.7, BP hypertensive H and P pg.1 [ x ] Lactic acid 2.4 H and P pg.1 [ x ] Cxr with bilateral infiltrates H and P pg.1 [ x ] Sepsis, syncope H and P pg.3 [ x ] Sepsis, sepsis type: Pseudomonas H and P pg.5 [ x ] Metabolic encephalopathy Hospitalist PN pg.5 [ x ] Bacteremia Consult 01/15 [ x ] Bacteremia 2/2 pseudomonas aeruginosa PN 01/17 pg.1 [ x ] Bhit=065.7 Ojfrc=174 Respi=20 GQ=082/79 Vital Signs 01/14 [ x ] WBC: 01/13=11.7 01/17=6.9 Labs 01/13 [ x ] Lactic Acid: 01/13=2.4 01/14=2.2 Labs 01/13 Present Risk Factors Results and Location in Medical Record [ x ] Bacteremia with pseudomonas DS pg.1 [ x ] DM2 DS pg.1 [ x ] DAVY DS pg.1 [ x ] 69 years old male ED Notes 01/13 Present Treatments Results and Location in Medical Record [ x ] chest X ray 01/13 chest X ray 01/13 [ x ] Abdomen/Pelvis CT 01/15 [ x ] Infectious consult Dr. Virgen 01/15 [ x ] IV Fluids MAR [ x ] Blood culture Microbiology 01/13 [ x ] Piperacillin 4.5gm IV MAR [ x ] Vancomycin 1gm IV MAR CDS/Scale Operator Signature: Beto Lanevishnu Nomat Phone #: [phone] Date/Time: 01/21/20 This is a permanent part of the Medical Record [facility]
== END 2020-01-18 16:45 | disposition home or self-care (01) | DRG 871 ==
LOC: ERS 19:17 → T4-A 21:52
PROVIDERS: ADMIT Internal Medicine; ATTEND Internal Medicine
DX: A41.52 Sepsis due to Pseudomonas (principal); G93.41 Metabolic encephalopathy; E11.9 Type 2 diabetes mellitus without complications; G47.33 Obstructive sleep apnea (adult) (pediatric); E78.5 Hyperlipidemia, unspecified; Z86.718 Personal history of other venous thrombosis and embolism; Z79.01 Long term (current) use of anticoagulants; Z87.442 Personal history of urinary calculi
CPT/HCPCS: 36415; 36416; 70450; 71045; 74177; 80048; 80053; 80202; 80306; 80307; 81003; 81015; 82140; 82550; 83605; 83690; 83735; 84484; 85025; 85610; 85652; 85730; 86140; 87040; 87077; 87086; 87149; 87186; 87635; 93005; 96361; 96365; 96367; J2543; J3370; J3475; J3490; Q9967; U0003

== ENCOUNTER 2020-05-20 06:36 | Emergency (ER) | payer MEDICARE ==
[2020-05-20] MEDS ORDERED: Ketorolac Tromethamine 30 MG/ML VIAL ONE (07:24)
[2020-05-20] MEDS ORDERED: Dexamethasone 10 MG/ML VIAL ONE (07:24)
== END 2020-05-20 08:32 | disposition home or self-care (01) ==
LOC: ERS 06:36
DX: J02.9 Acute pharyngitis, unspecified (principal); E11.9 Type 2 diabetes mellitus without complications; E78.5 Hyperlipidemia, unspecified; E78.00 Pure hypercholesterolemia, unspecified; Z86.718 Personal history of other venous thrombosis and embolism; M10.9 Gout, unspecified; Z79.84 Long term (current) use of oral hypoglycemic drugs; Z79.899 Other long term (current) drug therapy
CPT/HCPCS: 36416; 87081; 87430; 96372; 99283; J1100; J1885

== ENCOUNTER 2021-06-05 08:16 | Emergency (ER) | payer MEDICARE ==
[2021-06-05 08:56] LABS: #Lymphocytes 0.8 thou/uL (1.20-3.40); #Monocytes 0.6 thou/uL (0.11-0.59); #Neutrophils 10.4 thou/uL (1.40-6.50); %Basophils 0.1 % (0.0-1.0); %Lymphocytes 6.4 % (21.0-51.0); %Monocytes 5.1 % (0.0-10.0); %Neutrophils 88.3 % (42.0-75.0); Hemoglobin 15.5 g/dL (14.0-18.0); Mean Corpuscular Hemoglobin 29.6 pg (27.0-31.0); Mean Corpuscular Volume 89.8 fL (78.0-98.0); Mean Platelet Volume 7.4 fL (7.4-10.4); Platelet Count 131 thou/uL (130-400); RBC Distribution Width 12.1 % (11.5-14.5); Red Blood Cell (RBC) Count 5.23 mill/uL (4.70-6.10); White Blood Cell (WBC) Count 11.7 thou/uL (4.8-10.8)
[2021-06-05 09:15] LABS: ALT (SGPT) 25 U/L (8-55); AST (SGOT) 32 U/L (5-34); Albumin 3.7 g/dL (3.4-4.8); Alkaline Phosphatase 50 U/L (40-110); Anion Gap 16 mmol/L (10-20); BUN (Urea Nitrogen) 13 mg/dL (8.4-25.7); Bilirubin, Total 1.3 mg/dL (0.2-1.2); Calc. Creatinine Clearance 0 mL/min (70-130); Calcium 8.6 mg/dL (7.8-10.44); Carbon Dioxide 24 mmol/L (23-31); Chloride 97 mmol/L (98-107); Globulin 3.3 g/dL (2.4-3.5); Glucose 287 mg/dL (80-115); Potassium 4.1 mmol/L (3.5-5.1); Sodium 133 mmol/L (136-145)
[2021-06-05 09:42] LABS: CK (CPK) 202 U/L (30-200); Magnesium 1.6 mg/dL (1.6-2.6)
== END 2021-06-05 12:20 | disposition home or self-care (01) ==
LOC: ERS 08:16
DX: E11.65 Type 2 diabetes mellitus with hyperglycemia (principal); R35.0 Frequency of micturition; E78.5 Hyperlipidemia, unspecified; E78.00 Pure hypercholesterolemia, unspecified; Z79.01 Long term (current) use of anticoagulants; Z79.84 Long term (current) use of oral hypoglycemic drugs; Z79.4 Long term (current) use of insulin; Z79.899 Other long term (current) drug therapy
CPT/HCPCS: 36415; 36416; 71045; 80053; 82010; 82550; 83605; 83735; 84484; 85025; 93005

== ENCOUNTER 2022-03-26 15:53 | Outpatient (CLI) | payer MEDICARE, OTHER | END 2022-03-26 15:54 | disposition home or self-care (01) | LOC: BICRAD 15:53 | PROVIDERS: ATTEND Family Medicine | DX: M25.562 Pain in left knee (principal); M25.561 Pain in right knee; M17.0 Bilateral primary osteoarthritis of knee ==